=== PATIENT | male | born 1940 | race Caucasian/White ===

== ENCOUNTER → 2019-01-19 | Outpatient (CLI) | payer MEDICARE, OTHER ==
[~2019-01-19] MED LIST: HYDR-3583 PO
--- NOTE | 2019-01-19 15:57 | Diagnostic Imaging Report ---
PATIENT HISTORY: Herniated disc. TECHNIQUE: Three views of the cervical spine. COMPARISON: None. FINDINGS: The cervical spine is visible from the craniocervical junction down to the C7 level on the lateral view. There are moderate degenerative changes at C4-5, C5-6, and C6-7, with mild degenerative change at C3-4. No significant spondylolisthesis is seen. No acute fracture is seen. There is facet arthropathy at C2-3. The C1-2 alignment appears normal. Prevertebral soft tissues are unremarkable. IMPRESSION: Moderate degenerative changes in the cervical spine with no acute fracture seen. Dictated by: Dictated on workstation # [id number]
--- NOTE | 2019-01-19 17:41 | Diagnostic Imaging Report ---
PATIENT HISTORY: Herniated disc. TECHNIQUE: Three views of the lumbar spine. COMPARISON: None. FINDINGS: There are five lumbar-type vertebral bodies. There is minimal retrolisthesis at L1-2 and at L3-4. There is grade 1 anterolisthesis at L4-5 measuring 4 mm. There is mild disc height loss at multiple levels throughout the lumbar spine, particularly at L5-S1. Small endplate osteophytes are noted at L3 and L4. Vertebral body heights are preserved. No acute fracture is seen. The bilateral sacroiliac joints are patent. Cholecystectomy clips are noted. There is aortic atherosclerosis. IMPRESSION: Mild degenerative changes in the lumbar spine with no acute osseous abnormalities seen. Dictated by: Dictated on workstation # [id number]
== END ==
LOC: RAD 14:24
PROVIDERS: ATTEND Nurse Practitioner Family
DX: M47.812 Spondylosis without myelopathy or radiculopathy, cervical region (principal); M50.20 Other cervical disc displacement, unspecified cervical region; M51.26 Other intervertebral disc displacement, lumbar region; M47.816 Spondylosis without myelopathy or radiculopathy, lumbar region; Z90.49 Acquired absence of other specified parts of digestive tract
CPT/HCPCS: 72040; 72100

== ENCOUNTER → 2019-05-05 | Outpatient (CLI) | payer MEDICARE, OTHER ==
--- NOTE | 2019-05-05 18:52 | Diagnostic Imaging Report ---
EXAMINATION: PA And lateral chest at 2:45 p.m. INDICATION: Chest pain. COMPARISON: There are no prior studies available for comparison. FINDINGS: The heart size is within normal limits. The lungs are clear. There is no evidence for failure, pneumonia, or for a pleural effusion. The mediastinum is not widened. The osseous structures are intact. IMPRESSION: There is no evidence for an acute cardiopulmonary abnormality. Dictated by: Dictated on workstation # [id number]
== END ==
LOC: RAD 14:32
PROVIDERS: ATTEND Family Medicine
DX: R07.89 Other chest pain (principal); R05 Cough; Z87.891 Personal history of nicotine dependence
CPT/HCPCS: 71046

== ENCOUNTER → 2020-02-06 | Outpatient (CLI) | payer MEDICARE, OTHER ==
--- NOTE | 2020-02-06 10:53 | Diagnostic Imaging Report ---
EXAMINATION: Supine abdomen at 9:26 AM INDICATION: Nephrolithiasis Reportedly, there is clinical concern regarding nephrolithiasis. There is a 5 mm calcific-like density overlying the superior pole of the left kidney. In retrospect, this may have been present on the lumbar spine exam performed on 01/09/2019. If further evaluation is desired, then CT would be recommended. There is no other pathological calcification evident. There is some gas in both the large and small bowel in a nonspecific fashion. There is no sign of bowel obstruction. There is no mass or organomegaly appreciated. The osseous structures are intact. Surgical clips are again seen overlying the right upper quadrant. IMPRESSION: 1. There is a question of nephrolithiasis on the left. Additional considerations as above. 2. There is no other pathological calcification identified. Dictated by: Dictated on workstation # [id number]
== END ==
LOC: RAD 09:02
PROVIDERS: ATTEND Urology
DX: N20.0 Calculus of kidney (principal)
CPT/HCPCS: 74018

== ENCOUNTER → 2020-02-27 | Outpatient (CLI) | payer MEDICARE, OTHER ==
--- NOTE | 2020-02-27 11:44 | Diagnostic Imaging Report ---
Indication: Right-sided kidney stone. Time of exam: 11:08 AM Correlation is made with prior abdominal radiograph from 02/06/2020. Bowel gas pattern is unremarkable. There are surgical clips in the gallbladder fossa. There is questionable vague calcific density overlying the upper pole of the left kidney similar to prior. No definite opaque calculi are seen along the expected courses of the ureters. IMPRESSION: Questionable left-sided renal calculi. If further evaluation is warranted, CT of the urinary tracts could be performed for further evaluation. Dictated by: Dictated on workstation # [id number]
== END ==
LOC: RAD 10:50
PROVIDERS: ATTEND Nurse Practitioner Family
DX: N20.0 Calculus of kidney (principal)
CPT/HCPCS: 74018

== ENCOUNTER 2020-03-19 08:57 | Inpatient (IN) | payer MEDICARE, OTHER ==
[~2020-03-19] VITALS: Ht 157 cm; Wt 91.6 kg
[2020-03-19] MEDS ORDERED: NS IV 1000 ML 1,000 ML IV SCH ×2 (09:12)
[2020-03-19] MEDS ORDERED: AZITHROMYCIN INJECTION 500 MG in NS (IVPB) 250 ML IV ONE (09:15)
[2020-03-19] MEDS ORDERED: cefTRIAXone FOR IV USE 1,000 MG in WATER (STERILE) FOR INJECTION 10 ML IV ONE (09:15)
--- OUTSIDE RECORDS SUMMARY | 2020-03-19 09:20 | XMS REPORT | CCD ---
Author Author Drake Larson Organization Marcy Maldonado MD, [facility] Address [address] [place] [address] Phone Care Team Providers Care First Sampler Name Role Phone PP Unavailable CCM Unavailable Summary Purpose Interface Exchange Insurance Providers Payer name Policy type / Coverage type Covered constitution party ID Effective Begin Date Effective End Date WPS Medicare Part B Medicare Part B [id number] Unknown [employer] dicYnsect Part B [id number] Unkn own Family History Family History data not found Social History Social History Element Codes Description Effective Dates Marital status Unknown [place] 01/19/2019 Number of children Unknown 2 01/19/2019 Employment Unknown Retir ed 01/19/[address]: 7722080 Quit over 10 years ago 01/19/[address]: 072706051 Never drinks alcohol 01/19/2019 Allergies, Adverse Reactions, Alerts Substance Reaction Codes Entered Date Inactivated Date Status * NO KNOWN DRUG NICK RGIES Unknown 05/05/2019 No Inactive Date Active Past Medical History Illness Codes Condition Status Onset Date Resolved Date Acute bronchitis due to other specified organisms ICD-9: 466.0 ICD-10: J20.8 Active 05/05/2019 Unknown Chest pain on breathing ICD-9: 786.52 ICD-10: R07.1 Active 05/05/2019 Unknown Cough ICD-9: 786.2 ICD-10: R05 Active 05/05/2019 Unknown Rash and other nonsp ecific skin eruption ICD-9: 782.1 ICD-10: R21 Active 05/05/2019 Unknown Encounter for genera l adult medical examination with abnormal findings ICD-9: V70.0 ICD-10: Z00.01 Active 01/19/2019 Unknown Encounter for screen ing for cardiovascular disorders ICD-9: V81.2 ICD-10: Z13.6 Active 01/19/2019 Unknown Encounter for screen ing for malignant neoplasm of prostate ICD-9: V76.44 ICD-10: Z12.5 Active 01/19/2019 Unknown Low back pain ICD-9: 724.2 ICD-10: M54.5 Active 01/19/2019 Unknown Pain in right shoulder ICD-9: 719.41 ICD-10: M25.511 Active 01/19/2019 Unknown Problems Condition Codes Effectiv e Dates Condition Status Acute bronchitis due to other specified organisms ICD-9: 466.0 ICD-10: J20.8 05/05/2019 Active Chest pain on breathing ICD-9: 786.52 ICD-10: R07.1 05/05/2019 Active Cough ICD-9: 786.2 ICD-10: R05 05/05/2019 Active Rash and other nonsp ecific skin eruption ICD-9: 782.1 ICD-10: R21 05/05/2019 Active Encounter for genera l adult medical examination with abnormal findings ICD-9: V70.0 ICD-10: Z00.01 01/19/2019 Active Encounter for screen ing for cardiovascular disorders ICD-9: V81.2 ICD-10: Z13.6 01/19/2019 Active Encounter for screen ing for malignant neoplasm of prostate ICD-9: V76.44 ICD-10: Z12.5 01/19/2019 Active Low back pain ICD-9: 724.2 ICD-10: M54.5 01/19/2019 Active Pain in right shoulder ICD-9: 719.41 ICD-10: M25.511 01/19/2019 Active Medications Medication Codes Instruc tions Start Date Stop Date Sta s Fill Instructions acyclovir 800 mg tablet RxNorm: 950916 1 Tablet(s) PO TID 05/17/2019 05/23/2019 Active acyclovir 800 mg tablet RxNorm: 631635 1 Tablet(s) PO TID 05/17/2019 05/16/2019 Inactive betamethasone loretta te 0.1 % topical cream RxNorm: 688905 1 TOP BID 05/05/2019 05/14/2019 Inactive ketoconazole 2 % top ical cream RxNorm: 290044 1 TOP TID 05/05/2019 05/14/2019 Inactive Medication Administered No Medication Administered data Immunizations No Immunization data Assessments Condition Codes Effectiv e Dates Acute bronchitis due to other specified organisms ICD-10: J20.8 ICD-9: 466.0 05/05/2019 Cough ICD-10: R05 ICD-9: 786.2 05/05/2019 Rash and other nonspecific skin eruption ICD-10: R21 ICD-9: 782.1 05/05/2019 Chest pain on breathing ICD-10: R07. 1 ICD-9: 786.52 05/05/2019 Encounter for screening for malignant neoplasm of pros earl ICD-10: Z12.5 ICD-9: V76.44 01/19/2019 Encounter for screening for cardiovascular disorders ICD-10: Z13.6 ICD-9: V81.2 01/19/2019 Encounter for general adult medical exam ination with abnormal findings ICD-10: Z00.01 ICD-9: V70.0 01/19/2019 Pain in right shoulder ICD-10: M25.5 11 ICD-9: 719.41 01/19/2019 Reason For Visit Reason For Visit Effective Dates Notes cough 05/05/2019 shoulder pain 01/19/2019 Results Observation Observation Code Item Item Code Result Date Total Psa Ord10 PSA 2.49 ng/mL 01/20/2019 Lipid Ord30 CHOL 179 mg/dL 01/20/2019 Lipid Ord30 HDL 28.0 mg/dl 01/20/2019 Lipid Ord30 TRIG 152 mg/dL 01/20/2019 Lipid Ord30 LDL 121 mg/dL 01/20/2019 Lipid Ord30 C/HDL 6.4 Ratio 01/20/2019 Tsh Ord6 TSH (3rd IS) 2.64 uIU/mL 01/20/2019 Comp Metabolic Euh716 NA 140 mEq/L 01/20/2019 Comp Metabolic Ewl439 K 3.9 mEq/L 01/20/2019 Comp Metabolic Htc862 CL 104 mEq/L 01/20/2019 Comp Metabolic Qvh191 CO2 26.0 mEq/L 01/20/2019 Comp Metabolic Xfv299 AN ION GAP 14 01/20/2019 Comp Metabolic Vrc135 GL UCOSE 99 mg/dL 01/20/2019 Comp Metabolic Slo136 Cr eat 0.8 mg/dL 01/20/2019 Comp Metabolic Pax035 eG FR 104 ml/min/1.73m2 01/05 Comp Metabolic Zjt606 BUN 11 mg/dL 01/20/2019 Comp Metabolic Hej928 B/ C Ratio 14.3 Ratio 01/20/2019 Comp Metabolic Koc491 CA LCIUM 8.9 mg/dL 01/20/2019 Comp Metabolic Tby268 AL K PHOS 63 U/L 01/20/2019 Comp Metabolic Ltd900 T(SGOT) 16 U/L 01/20/2019 Comp Metabolic Pts001 AL T(SGPT) 23 U/L 01/20/2019 Comp Metabolic Vjq276 BI LI T 1.0 mg/dL 01/20/2019 Comp Metabolic Nqf799 AL BUMIN 4.2 g/dL 01/20/2019 Comp Metabolic Psf416 TP RO 6.3 g/dL 01/20/2019 Comp Metabolic Eyj522 GL OB 2.1 g/dL 01/20/2019 Comp Metabolic Rlw726 A/ G Ratio 2.0 Ratio 01/20/2019 Comp Metabolic Vzq084 Os mo 279 mOsmo 01/20/2019 Cbc With Differential Ord2 WBC 4.83 K/ul 01/19/2019 Cbc With Differential Ord2 RBC 5.22 M/ul 01/19/2019 Cbc With Differential Ord2 HGB 15.5 g/dl 01/19/2019 Cbc With Differential Ord2 HCT 46.4 % 01/19/2019 Cbc With Differential Ord2 Neut% 72.1 % 01/19/2019 Cbc With Differential Ord2 MCV 88.9 fl 01/19/2019 Cbc With Differential Ord2 Lymph% 15.9 % 01/19/2019 Cbc With Differential Ord2 MCH 29.7 pg 01/19/2019 Cbc With Differential Ord2 [place]% 7.9 % 01/19/2019 Cbc With Differential Ord2 Eos% 3.9 % 01/19/2019 Cbc With Differential Ord2 MCHC 33.4 pg 01/19/2019 Cbc With Differential Ord2 PLT 174 K/ul 01/19/2019 Cbc With Differential Ord2 Baso% 0.2 % 01/19/2019 Cbc With Differential Ord2 RDW 14.5 % 01/19/2019 Cbc With Differential Ord2 Neut ABS# 3.48 K/ul 01/19/2019 Cbc With Differential Ord2 Lymph ABS# 0.77 K/ul 01/19/2019 Cbc With Differential Ord2 [place] ABS# 0.4 K/ul 01/19/2019 Cbc With Differential Ord2 Eos ABS# 0.2 K/ul 01/19/2019 Cbc With Differential Ord2 Baso ABS# 0.0 K/ul 01/19/2019 Review of Systems System Result Effective Dates Constitutional No recent illness 05/05/2019 Constitutional No chills 05/05/2019 Constitutional No diaphoresis 05/05/2019 Constitutional No fever 05/05/2019 Eyes No blindness 2018 Ears/Nose/Throat/Neck No nasal allergies 05/05/2019 Ears/Nose/Throat/Neck No nasal discharge 05/05/2019 Cardiovascular No chest pain/pressure 05/05/2019 Cardiovascular No dyspnea 05/05/2019 Respiratory chest congestion 05/05/2019 Respiratory cough 2018 Gastrointestinal No abdominal pain 05/05/2019 Gastrointestinal No constipation 05/05/2019 Gastrointestinal No diarrhea 05/05/2019 Gastrointestinal No hematochezia 05/05/2019 Gastrointestinal No melena 05/05/2019 Gastrointestinal No nausea 05/05/2019 Gastrointestinal No vomiting 05/05/2019 Dermatologic rash 2018 Neurologic No alteration of consciousness 05/05/2019 Neurologic No mental status change 05/05/2019 Musculoskeletal stiffness 05/05/2019 Musculoskeletal back pain 05/05/2019 Constitutional No recent illness 01/19/2019 Constitutional No chills 01/19/2019 Constitutional No diaphoresis 01/19/2019 Constitutional No fever 01/19/2019 Eyes No eye erythema Ears/Nose/Throat/Neck No nasal allergies 01/19/2019 Ears/Nose/Throat/Neck No nasal discharge 01/19/2019 Cardiovascular No chest pain/pressure 01/19/2019 Cardiovascular No dyspnea 01/19/2019 Respiratory No chest congestion 01/19/2019 Respiratory No cough Gastrointestinal No abdominal pain 01/19/2019 Gastrointestinal No constipation 01/19/2019 Gastrointestinal No diarrhea 01/19/2019 Gastrointestinal No hematochezia 01/19/2019 Gastrointestinal No melena 01/19/2019 Gastrointestinal No nausea 01/19/2019 Gastrointestinal No vomiting 01/19/2019 Dermatologic No rash Neurologic No alteration of consciousness 01/19/2019 Neurologic No mental status change 01/19/2019 Musculoskeletal shoulder pain 01/19/2019 Musculoskeletal carpal tunnel syndrome 01/19/2019 Physical Exam Exam Name System Name It em Name Status Result Effective Dates Notes Full Exam - General 1994 Constitutional general appearance Overall: well developed 05/05/2019 None Full Exam - General 1994 Constitutional general appearance Overall: in no acute distress 05/05/2019 None Full Exam - General 1994 Constitutional general appearance Overall: well nourished 05/05/2019 None Full Exam - General 1994 Eyes conjunctiva/eyelids Overall: conjunctiva clear 05/05/2019 None Full Exam - General 1994 Eyes conjunctiva/eyelids Overall: cornea clear 05/05/2019 None Full Exam - General 1994 Eyes conjunctiva/eyelids Overall: eyelids normal 05/05/2019 None Full Exam - General 1994 Eyes pupils and irises Overall: pupils equal, round, reactive to light and accomodation 05/05/2019 None Full Exam - General 1994 Ears/Nose/Throat otoscopic exam Overall: external auditory canals clear 05/05/2019 None Full Exam - General 1994 Ears/Nose/Throat otoscopic exam Overall: tympanic membranes clear 05/05/2019 None Full Exam - General 1994 Ears/Nose/Throat lips/teeth/gingiva Overall: benign lips 05/05/2019 None Full Exam - General 1994 Ears/Nose/Throat oral cavity/pharynx/larynx Overall: oral mucosa clear 05/05/2019 None Full Exam - General 1994 Ears/Nose/Throat oral cavity/pharynx/larynx Overall: oropharyngeal mucosa clear 05/05/2019 None Full Exam - General 1994 Respiratory auscultation Overall: breath sounds clear bilaterally 05/05/2019 None Full Exam - General 1994 Respiratory respiratory effort/rhythm Overall: no retractions 05/05/2019 None Full Exam - General 1994 Respiratory respiratory effort/rhythm Overall: normal rate 05/05/2019 None Full Exam - General 1994 Cardiovascular extremities Overall: no clubbing 05/05/2019 None Full Exam - General 1994 Cardiovascular auscultation of heart Overall: regular rate 05/05/2019 None Full Exam - General 1994 Cardiovascular auscultation of heart Overall: normal heart sounds 05/05/2019 None Full Exam - General 1994 Abdomen abdominal exam Overall: no tenderness 05/05/2019 None Full Exam - General 1994 Abdomen abdominal exam Overall: normal bowel sounds 05/05/2019 None Full Exam - General 1994 Musculoskeletal upper extremity Palpation - shoulder: acromioclavicular joint tenderness 05/05/2019 None Full Exam - General 1994 Musculoskeletal upper extremity Palpation - shoulder: tenderness @ bicipital groove 05/05/2019 None Full Exam - General 1994 Musculoskeletal upper extremity ROM - shoulder: pain with external rotation 05/05/2019 None Full Exam - General 1994 Musculoskeletal upper extremity ROM - shoulder: pain with internal rotation 05/05/2019 None Full Exam - General 1994 Musculoskeletal gait and station Overall: normal gait 05/05/2019 None Full Exam - General 1994 Musculoskeletal gait and station Overall: normal station 05/05/2019 None Full Exam - General 1994 Musculoskeletal head and neck Overall: head atraumatic 05/05/2019 None Full Exam - General 1994 Neurologic cranial nerves Overall: crainial nerves 2 - 12 grossly intact 05/05/2019 None Full Exam - General 1994 Psychiatric orientation/consciousness Overall: oriented to person, place and time 05/05/2019 None Full Exam - General 1994 Psychiatric mood and affect Overall: normal mood and affect 05/05/2019 None Full Exam - General 1994 Psychiatric appearance Overall: well-groomed, good eye contact 05/05/2019 None Full Exam - General 1994 Integument inspection of skin Dermatitis: dryness/flaking 05/05/2019 on left arm from shoulder to hand Full Exam - General 1994 Constitutional general appearance Overall: well developed 01/19/2019 None Full Exam - General 1994 Constitutional general appearance Overall: in no acute distress 01/19/2019 None Full Exam - General 1994 Constitutional general appearance Overall: well nourished 01/19/2019 None Full Exam - General 1994 Eyes conjunctiva/eyelids Overall: conjunctiva clear 01/19/2019 None Full Exam - General 1994 Eyes conjunctiva/eyelids Overall: cornea clear 01/19/2019 None Full Exam - General 1994 Eyes conjunctiva/eyelids Overall: eyelids normal 01/19/2019 None Full Exam - General 1994 Eyes pupils and irises Overall: pupils equal, round, reactive to light and accomodation 01/19/2019 None Full Exam - General 1994 Ears/Nose/Throat otoscopic exam Overall: external auditory canals clear 01/19/2019 None Full Exam - General 1994 Ears/Nose/Throat otoscopic exam Overall: tympanic membranes clear 01/19/2019 None Full Exam - General 1994 Ears/Nose/Throat lips/teeth/gingiva Overall: benign lips 01/19/2019 None Full Exam - General 1994 Ears/Nose/Throat oral cavity/pharynx/larynx Overall: oral mucosa clear 01/19/2019 None Full Exam - General 1994 Ears/Nose/Throat oral cavity/pharynx/larynx Overall: oropharyngeal mucosa clear 01/19/2019 None Full Exam - General 1994 Respiratory auscultation Overall: breath sounds clear bilaterally 01/19/2019 None Full Exam - General 1994 Respiratory respiratory effort/rhythm Overall: no retractions 01/19/2019 None Full Exam - General 1994 Respiratory respiratory effort/rhythm Overall: normal rate 01/19/2019 None Full Exam - General 1994 Cardiovascular extremities Overall: no clubbing 01/19/2019 None Full Exam - General 1994 Cardiovascular auscultation of heart Overall: regular rate 01/19/2019 None Full Exam - General 1994 Cardiovascular auscultation of heart Overall: normal heart sounds 01/19/2019 None Full Exam - General 1994 Abdomen abdominal exam Overall: no tenderness 01/19/2019 None Full Exam - General 1994 Abdomen abdominal exam Overall: normal bowel sounds 01/19/2019 None Full Exam - General 1994 Musculoskeletal gait and station Overall: normal gait 01/19/2019 None Full Exam - General 1994 Musculoskeletal gait and station Overall: normal station 01/19/2019 None Full Exam - General 1994 Musculoskeletal head and neck Overall: head atraumatic 01/19/2019 None Full Exam - General 1994 Neurologic cranial nerves Overall: crainial nerves 2 - 12 grossly intact 01/19/2019 None Full Exam - General 1994 Psychiatric orientation/consciousness Overall: oriented to person, place and time 01/19/2019 None Full Exam - General 1994 Psychiatric mood and affect Overall: normal mood and affect 01/19/2019 None Full Exam - General 1994 Psychiatric appearance Overall: well-groomed, good eye contact 01/19/2019 None Full Exam - General 1994 Musculoskeletal upper extremity Palpation - shoulder: acromioclavicular joint tenderness 01/19/2019 None Full Exam - General 1994 Musculoskeletal upper extremity Palpation - shoulder: tenderness @ bicipital groove 01/19/2019 None Full Exam - General 1994 Musculoskeletal upper extremity ROM - shoulder: pain with external rotation 01/19/2019 None Full Exam - General 1994 Musculoskeletal upper extremity ROM - shoulder: pain with internal rotation 01/19/2019 None Procedures No Procedures data Vital Signs Date Vital 05/05/2019 Blood Pressure 1: 130/70 Code: 8480-6 BMI: 28.7 Code: 93605-9 Heart Rate 1: 70 bpm Height: 5'10" SpO2: 93% Weight: 197 lbs 01/19/2019 Blood Pressure 1: 122/66 Code: 8480-6 BMI: 28.5 Code: 50117-9 Heart Rate 1: 62 bpm Height: 5'10" SpO2: 95% Weight: 196 lbs Functional Status No Functional Status data History of Present Illness Symptom Name Status Resu lt Effective Date Notes Location in the throat 05/05/2019 None Quality worsening 05/05/2019 None Onset and Resolution o ngoing 05/05/2019 None Quality productive 05/05/2019 yellow Onset of Symptom 2 mon ths ago 05/05/2019 None Pertinent Findings gisele st discomfort 05/05/2019 right side rib pain aroun d to back Pertinent Findings dys pnea 05/05/2019 after coughing Pertinent Findings mus lou aches 05/05/2019 None Quality chronic 01/19/2019 None Location on the right shoulder 01/19/2019 None Onset and Resolution o ngoing 01/19/2019 None Pertinent Findings Den ies fever 01/19/2019 None Advance Directives No Advance Directive data Encounters Encounter Performer Loca tion Codes Date EST. P ATIENT, LEVEL IV Diagnosis: Chest pain on breathing[ICD10: R07.1] Diagnosis: Cough[ICD10: R05] Diagnosis: Rash and other nonspecific skin eruption[ICD10: R21] Diagnosis: Acute bronchitis due to other specified organisms[ICD10: J20.8] [facility] CPT-4: 21415 05/05/2019 OFFICE VISIT, NEW - LEVEL 4 Diagnosis: Pain in right shoulder[ICD10: M25.511] Diagnosis: Encounter for screening for cardiovascular disorders[ICD10: Z13.6] Diagnosis: Encounter for screening for malignant neoplasm of prostate[ICD10: Z12.5] Diagnosis: Encounter for general adult medical examination with abnormal findings[ICD10: Z00.01] [facility] CPT-4: 29820 01/19/2019 Plan of Care Planned Activity Notes C odes Status Date Visit Plan: Bronchitis with cough - acute case of bronchitis identified. Pt has been given antibiotics, breathing treatments as appropriate, and pt has been instructed to call if symptoms are not improved, or if symptoms acutely worsen. Rash - rx for betamethasone/ketoconazole cream for treatment of arm. 05/05/2019 Appointment: Marcy Maldonado WPtel: [id number] (15 min) Moderate 05/05/2019 Patient Education: Patient Medication Summary Completed 05/05/2019 Care Plan: CHEST X-RAY 2VW FRONTAL&LATL LOINC : 67481-6 Pending 05/05/2019 Care Plan: X-RAY EXAM NECK SPINE 2-3 VW LOINC : 12173-8 Pending 01/20/2019 Care Plan: X-RAY EXAM L-S SPINE 2/3 VWS LOINC : 42910-2 Pending 01/20/2019 Visit Plan: Well Adult - pt was cou nseled about diet, exercise, and encouraged to follow a heart healthy diet and increase activity level. The patient was instructed to RTC yearly for well adult exams and PRN for acute illnesses. The pt was also instructed to have yearly labs for check of cholesterol, thyroid, chem panel, CBC, and renal functioning. Right shoulder/back pain - will check x-ray and treat or refer as indicated 01/19/2019 Patient Education: Patient Medication Summary Completed 01/19/2019 Care Plan: Total Psa Pending 01/19/2019 Instructions Comment . Bronchitis with co ugh - acute case of bronchitis identified. Pt has been given antibiotics, breathing treatments as appropriate, and pt has been instructed to call if symptoms are not improved, or if symptoms acutely worsen. Rash - rx for betamethasone/ketoconazole cream for treatment of arm. . Well Adult - pt wa s counseled about diet, exercise, and encouraged to follow a heart healthy diet and increase activity level. The patient was instructed to RTC yearly for well adult exams and PRN for acute illnesses. The pt was also instructed to have yearly labs for check of cholesterol, thyroid, chem panel, CBC, and renal functioning. Right shoulder/back pain - will check x-ray and treat or refer as indicated
--- OUTSIDE RECORDS SUMMARY | 2020-03-19 09:21 | XMS REPORT | CCD ---
Author Drake Peraza Organization Marcy Maldonado MD, [facility] Address [address] [place] [address] Phone Care Team Providers Care Control Clerk Name Role Phone PP Unavailable CCM Unavailable Summary Purpose Interface Exchange Insurance Providers Payer name Policy type / Coverage type Covered green party ID Effective Begin Date Effective End Date WPS Medicare Part B Medicare Part B [id number] Unknown Unknown Cigna health and Life Insurance Medi care Part B [id number] Unknown Unkno wn Family History Family History data not found Social History Social History Element Codes Description Effective Dates Marital status Unknown M arried [place] 01/19/2019 Number of children Unknown 2 01/19/2019 Employment Unknown Retir ed 01/19/[address]: 4466738 Quit over 10 years ago 01/19/[address]: 598359148 Never drinks alcohol 01/19/2019 Allergies, Adverse Reactions, Alerts Allergies, Adverse Reactions, Alerts data not found Past Medical History Illness Codes Condition Status Onset Date Resolved Date Encounter for genera l adult medical examination [...] Condition Codes Effectiv e Dates Condition Status Encounter for genera l adult medical examination [...] ICD-9: 719.41 ICD-10: M25.511 01/19/2019 Active Medications No Medication History data Medication Administered No Medication Administered data Immunizations No Immunization data Assessments Condition Codes Effectiv e Dates Encounter for screening for malignant neoplasm of pros earl ICD-10: Z12.5 ICD-9: V76.44 01/19/2019 Encounter for screening for cardiovascular disorders ICD-10: Z13.6 ICD-9: V81.2 01/19/2019 Encounter for general adult medical exam ination with abnormal findings ICD-10: Z00.01 ICD-9: V70.0 01/19/2019 Pain in right shoulder ICD-10: M25.5 11 ICD-9: 719.41 01/19/2019 Reason For Visit Reason For Visit Effective Dates Notes shoulder pain 01/19/2019 Results Observation Observation Code Item Item Code Result Date Total Psa Ord10 PSA 2.49 ng/mL 01/20/2019 Lipid Ord30 CHOL 179 mg/dL 01/20/2019 Lipid Ord30 HDL 28.0 mg/dl 01/20/2019 Lipid Ord30 TRIG 152 mg/dL 01/20/2019 Lipid Ord30 LDL 121 mg/dL 01/20/2019 Lipid Ord30 C/HDL 6.4 Ratio 01/20/2019 Tsh Ord6 TSH (3rd IS) 2.64 uIU/mL 01/20/2019 Comp Metabolic Plv939 NA 140 mEq/L 01/20/2019 Comp Metabolic Gxy202 K 3.9 mEq/L 01/20/2019 Comp Metabolic Zox499 CL 104 mEq/L 01/20/2019 Comp Metabolic Qgf838 CO2 26.0 mEq/L 01/20/2019 Comp Metabolic Mwj401 AN ION GAP 14 01/20/2019 Comp Metabolic Llr439 GL UCOSE 99 mg/dL 01/20/2019 Comp Metabolic Mtq362 Cr eat 0.8 mg/dL 01/20/2019 Comp Metabolic Dvc830 eG FR 104 ml/min/1.73m2 01/05 Comp Metabolic Fke459 BUN 11 mg/dL 01/20/2019 Comp Metabolic Bih150 B/ C Ratio 14.3 Ratio 01/20/2019 Comp Metabolic Rzz851 CA LCIUM 8.9 mg/dL 01/20/2019 Comp Metabolic Qda666 AL K PHOS 63 U/L 01/20/2019 Comp Metabolic Nie014 T(SGOT) 16 U/L 01/20/2019 Comp Metabolic Acb390 AL T(SGPT) 23 U/L 01/20/2019 Comp Metabolic Ubj149 BI LI T 1.0 mg/dL 01/20/2019 Comp Metabolic Gud034 AL BUMIN 4.2 g/dL 01/20/2019 Comp Metabolic Qdo274 TP RO 6.3 g/dL 01/20/2019 Comp Metabolic Ogm771 GL OB 2.1 g/dL 01/20/2019 Comp Metabolic Lsr771 A/ G Ratio 2.0 Ratio 01/20/2019 Comp Metabolic Qct838 Os mo 279 mOsmo 01/20/2019 Cbc With [...] 29.7 pg 01/19/2019 Cbc With Differential Ord2 [place]% 7.9 % 01/19/2019 Cbc With Differential Ord2 MCHC 33.4 pg 01/19/2019 Cbc With Differential Ord2 Eos% 3.9 % 01/19/2019 Cbc With Differential Ord2 PLT 174 K/ul 01/19/2019 Cbc With Differential Ord2 Baso% 0.2 % 01/19/2019 Cbc With Differential Ord2 RDW 14.5 % 01/19/2019 Cbc With Differential Ord2 Neut ABS# 3.48 K/ul 01/19/2019 Cbc With Differential Ord2 Lymph ABS# 0.77 K/ul 01/19/2019 Cbc With Differential Ord2 [place] ABS# 0.4 K/ul 01/19/2019 Cbc With Differential Ord2 Eos ABS# 0.2 K/ul 01/19/2019 Cbc With Differential Ord2 Baso ABS# 0.0 K/ul 01/19/2019 Review of Systems System Result Effective Dates Constitutional No recent illness 01/19/2019 Constitutional No [...] No Procedures data Vital Signs Date Vital 01/19/2019 Blood Pressure 1: 122/66 Code: 8480-6 BMI: 28.5 Code: 79391-1 Heart Rate 1: 62 bpm Height: 5'10" SpO2: 95% Weight: 196 lbs Functional Status No Functional Status data History of Present Illness Symptom Name Status Resu lt Effective Date Notes Quality chronic 01/19/2019 None Location on the right shoulder 01/19/2019 None Onset and Resolution o ngoing 01/19/2019 None Pertinent Findings Den ies fever 01/19/2019 None Advance Directives No Advance Directive data Encounters Encounter Performer Loca tion Codes Date OFFICE VISIT, NEW - LEVEL 4 Diagnosis: Pain in right shoulder[ICD10: M25.511] Diagnosis: Encounter for screening for cardiovascular disorders[ICD10: Z13.6] Diagnosis: Encounter for screening for malignant neoplasm of prostate[ICD10: Z12.5] Diagnosis: Encounter for general adult medical examination with abnormal findings[ICD10: Z00.01] [facility] CPT-4: 40614 01/19/2019 Plan of Care Planned Activity Notes C odes Status Date Care Plan: X-RAY EXAM NECK SPINE 2-3 VW LOINC : 63513-0 Pending 01/20/2019 Care Plan: X-RAY EXAM L-S SPINE 2/3 VWS LOINC : 86723-1 Pending 01/20/2019 Visit Plan: Well Adult - [...] Total Psa Pending 01/19/2019 Instructions Comment . Well Adult - pt wa s [...]
--- OUTSIDE RECORDS SUMMARY | 2020-03-19 09:21 | XMS REPORT | CCD ---
Author Author Drake Larson Organization Marcy Maldonado MD, [facility] Address [address] [place] [address] Phone Care Team Providers Care Preparation Operator Name Role Phone PP Unavailable CCM Unavailable Summary Purpose Interface Exchange Insurance Providers Payer name Policy type / Coverage type Covered constitution party ID Effective Begin Date Effective End Date WPS Medicare Part B Medicare Part B [id number] Unknown [address] [employer]ine[employer] Part B [id number] Unkn own Family History Family History data not found Social History Social History Element Codes Description Effective Dates Marital status Unknown M arried [place] 01/19/2019 Number of children Unknown 2 01/19/2019 Employment Unknown Retir ed 01/19/[address]: 7254039 Quit over 10 years ago 01/19/[address]: 669449989 Never drinks alcohol 01/19/2019 Allergies, Adverse Reactions, [...] Instruc tions Start Date Stop Date Sta tus Fill Instructions betamethasone loretta te 0.1 % topical cream RxNorm: 868542 1 TOP BID 05/05/2019 05/14/2019 Active ketoconazole 2 % top ical cream RxNorm: 912498 1 TOP TID 05/05/2019 05/14/2019 Active Medication Administered No Medication Administered data Immunizations [...] (3rd IS) 2.64 uIU/mL 01/20/2019 Comp Metabolic Ptf321 NA 140 mEq/L 01/20/2019 Comp Metabolic Glb990 K 3.9 mEq/L 01/20/2019 Comp Metabolic Nif537 CL 104 mEq/L 01/20/2019 Comp Metabolic Lqy162 CO2 26.0 mEq/L 01/20/2019 Comp Metabolic Tnp255 AN ION GAP 14 01/20/2019 Comp Metabolic Rys651 GL UCOSE 99 mg/dL 01/20/2019 Comp Metabolic Lqh578 Cr eat 0.8 mg/dL 01/20/2019 Comp Metabolic Wqe489 eG FR 104 ml/min/1.73m2 01/05 Comp Metabolic Nld136 BUN 11 mg/dL 01/20/2019 Comp Metabolic Tyw366 B/ C Ratio 14.3 Ratio 01/20/2019 Comp Metabolic Zty619 CA LCIUM 8.9 mg/dL 01/20/2019 Comp Metabolic Zjn511 AL K PHOS 63 U/L 01/20/2019 Comp Metabolic Nqo671 T(SGOT) 16 U/L 01/20/2019 Comp Metabolic Rze835 AL T(SGPT) 23 U/L 01/20/2019 Comp Metabolic Ytq627 BI LI T 1.0 mg/dL 01/20/2019 Comp Metabolic Frw883 AL BUMIN 4.2 g/dL 01/20/2019 Comp Metabolic Yky653 TP RO 6.3 g/dL 01/20/2019 Comp Metabolic Mgu005 GL OB 2.1 g/dL 01/20/2019 Comp Metabolic Wcw323 A/ G Ratio 2.0 Ratio 01/20/2019 Comp Metabolic Mjg518 Os mo 279 mOsmo 01/20/2019 Cbc With [...] 29.7 pg 01/19/2019 Cbc With Differential Ord2 [place]% 7.9 % 01/19/2019 Cbc With Differential Ord2 [...] 0.77 K/ul 01/19/2019 Cbc With Differential Ord2 [place] ABS# 0.4 K/ul 01/19/2019 Cbc With Differential [...] 1: 130/70 Code: 8480-6 BMI: 28.7 Code: 39041-2 Heart Rate 1: 70 bpm Height: 5'10" SpO2: 93% Weight: 197 lbs 01/19/2019 Blood Pressure 1: 122/66 Code: 8480-6 BMI: 28.5 Code: 35153-2 Heart Rate 1: 62 bpm Height: 5'10" [...] organisms[ICD10: J20.8] [facility] CPT-4: 28949 05/05/2019 OFFICE VISIT, NEW - LEVEL 4 Diagnosis: Pain in right shoulder[ICD10: M25.511] Diagnosis: Encounter for screening for cardiovascular disorders[ICD10: Z13.6] Diagnosis: Encounter for screening for malignant neoplasm of prostate[ICD10: Z12.5] Diagnosis: Encounter for general adult medical examination with abnormal findings[ICD10: Z00.01] [facility] CPT-4: 17595 01/19/2019 Plan of Care Planned Activity Notes C odes Status Date Visit Plan: Bronchitis with cough - acute case of bronchitis identified. Pt has been given antibiotics, breathing treatments as appropriate, and pt has been instructed to call if symptoms are not improved, or if symptoms acutely worsen. Rash - rx for betamethasone/ketoconazole cream for treatment of arm. 05/05/2019 Appointment: Marcy Maldonado WPtel: [address] [place], [place] [phone] (15 min) Moderate 05/05/2019 Patient Education: Patient Medication Summary Completed 05/05/2019 Care Plan: CHEST X-RAY 2VW FRONTAL&LATL LOINC : 78070-2 Pending 05/05/2019 Care Plan: X-RAY EXAM NECK SPINE 2-3 VW LOINC : 62149-7 Pending 01/20/2019 Care Plan: X-RAY EXAM L-S SPINE 2/3 VWS LOINC : 78232-7 Pending 01/20/2019 Visit Plan: Well Adult - [...]
--- OUTSIDE RECORDS SUMMARY | 2020-03-19 09:21 | XMS REPORT | Continuity of Care Document ---
Author Organization Unknown Address Unknown Phone Unavailable Allergies Active Description Code Type Severity Reaction Onset Reported/Identified Relationship to Patient Clinical Status Yes No Known Drug Allergies [id number] Drug Allergy Unknown N/A 05/09/2011 Medications There is no data. Problems Date Dx Coded Attending Type Code Diagnosis Diagnosed By 01/20/2019 DOMENICO HURST APRN Ot M47.812 SPONDYLOSIS W/O MYELOPATHY OR RADICULOPA 01/20/2019 DOMENICO HURST APRN Ot M47.816 SPONDYLOSIS W/O MYELOPATHY OR RADICULOPA 01/20/2019 DOMENICO HURST APRN Ot M50.20 OTHER CERVICAL DISC DISPLACEMENT, UNSP C 01/20/2019 DOMENICO HURST APRN Ot M51.26 OTHER INTERVERTEBRAL DISC DISPLACEMENT, 01/20/2019 DOMENICO HURST APRN Ot Z90.49 ACQUIRED ABSENCE OF OTHER SPECIFIED PART 01/25/2019 DOMENICO HURST APRN Ot M47.812 SPONDYLOSIS W/O MYELOPATHY OR RADICULOPA 01/25/2019 DOMENICO HURST APRN Ot M47.816 SPONDYLOSIS W/O MYELOPATHY OR RADICULOPA 01/25/2019 DOMENICO HURST APRN Ot M50.20 OTHER CERVICAL DISC DISPLACEMENT, UNSP C 01/25/2019 DOMENICO HURST APRN Ot M51.26 OTHER INTERVERTEBRAL DISC DISPLACEMENT, 01/25/2019 DOMENICO HURST BACK TENDER PULP DRIER Ot Z90.49 ACQUIRED ABSENCE OF OTHER SPECIFIED PART 02/08/2019 DOMENICO HURST APRN Ot M47.812 SPONDYLOSIS W/O MYELOPATHY OR RADICULOPA 02/08/2019 DOMENICO HURST APRN Ot M47.816 SPONDYLOSIS W/O MYELOPATHY OR RADICULOPA 02/08/2019 DOMENICO HURST APRN Ot M50.20 OTHER CERVICAL DISC DISPLACEMENT, UNSP C 02/08/2019 DOMENICO HURST BACK TENDER PULP DRIER Ot M51.26 OTHER INTERVERTEBRAL DISC DISPLACEMENT, 02/08/2019 DOMENICO HURST APRN Ot Z90.49 ACQUIRED ABSENCE OF OTHER SPECIFIED PART 06/02/2019 CHAD MALDONADO MD Ot R0 5 COUGH 06/02/2019 CHAD MALDONADO MD Ot R07.89 OTHER CHEST PAIN 06/02/2019 CHAD MALDONADO MD Ot Z87.891 PERSONAL HISTORY OF NICOTINE DEPENDENCE 02/02/2020 W 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 Carter, Marshall 02/02/2020 W N20.0 Kidn ey stone on right side Carter, Marshall 02/02/2020 W N40.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 Carter, Marshall 2020 DOMENICO HURST APRN Ot M47.812 SPONDYLOSIS W/O MYELOPATHY OR RADICULOPA 2020 DOMENICO HURST APRN Ot M47.816 SPONDYLOSIS W/O MYELOPATHY OR RADICULOPA 2020 DOMENICO HURST APRN Ot M50.20 OTHER CERVICAL DISC DISPLACEMENT, UNSP C 2020 DOMENICO HURST APRN Ot M51.26 OTHER INTERVERTEBRAL DISC DISPLACEMENT, 2020 DOMENICO HURST APRN Ot Z90.49 ACQUIRED ABSENCE OF OTHER SPECIFIED PART 2020 CHAD MALDONADO MD Ot R0 5 COUGH 2020 CHAD MALDONADO MD Ot R07.89 OTHER CHEST PAIN 2020 CHAD MALDONADO MD Ot Z87.891 PERSONAL HISTORY OF NICOTINE DEPENDENCE 02/27/2020 DOMENICO HURST APRN Ot M47.812 SPONDYLOSIS W/O MYELOPATHY OR RADICULOPA 02/27/2020 DOMENICO HURST APRN Ot M47.816 SPONDYLOSIS W/O MYELOPATHY OR RADICULOPA 02/27/2020 DOMENICO HURST APRN Ot M50.20 OTHER CERVICAL DISC DISPLACEMENT, UNSP C 02/27/2020 DOMENICO HURST APRN Ot M51.26 OTHER INTERVERTEBRAL DISC DISPLACEMENT, 02/27/2020 DOMENICO HURST APRN Ot Z90.49 ACQUIRED ABSENCE OF OTHER SPECIFIED PART 02/27/2020 CHAD MALDONADO MD Ot R0 5 COUGH 02/27/2020 JOEL MD, CHAD A Ot R07.89 OTHER CHEST PAIN 02/27/2020 JOEL DIAZ, CHAD Llanos Ot Z87.891 PERSONAL HISTORY OF NICOTINE DEPENDENCE 02/27/2020 LOI DIAZ, AJITH A Ot N20.0 CALCULUS OF KIDNEY 02/27/2020 W N20.0 Recu rrent kidney stones Aguilar Neha 02/27/2020 W N39.0 UTI (urinary tract infection) Aguilar Neha 02/27/2020 W R31.0 Amalia s hematuria Neha Sheikh 02/29/2020 NEHA SHEIKH SPRAY MIXER Ot N20.0 CALCULUS OF KIDNEY 03/01/2020 W M54.5 Low back pain Joel Marshall 03/01/2020 W N39.45 Uri nary incontinence with continuous leakage Joel Marshall 03/01/2020 W N40.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 Joel Chad 03/02/2020 W N20.0 Recu rrent kidney stones Neha Sheikh 03/02/2020 W N39.0 UTI (urinary tract infection) Geronimo Sheikhhanie 03/02/2020 W R31.0 Amalia s hematuria Neha Sheikh 03/07/2020 W N39.0 UTI (urinary tract infection) Chad Maldonado Procedures There is no data. Results Test Result Range Urine Culture - 01/21/20 17:56 PRELIM CULTURE RESULTS 50,000-100,000 Gram N egative Lactose Supply Requirements Officer KRISTY / ID to Follow MEDIA PLATED Setup at 18:50 on 01/21/2020 CULTURE SOURCE Void Sensi - 01/21/20 17:56 FINAL CULTURE RESULTS Escherichia coli (Isolate 1) Ampicillin/Sulbactam <=8/4 Ampicillin <=8 Amoxicillin/K Clavulanate <=8/4 Ceftriaxone <=8 Ciprofloxacin <=1 Nitrofurantoin <=32 Gentamicin <=4 Levofloxacin <=2 Trimethoprim/ Sulfamethoxazole <=2/38 Tetracycline <=4 Amikacin <=16 Aztreonam <=8 Ceftazidime <=1 Ceftazidime/K Clavulanate <=0.25 Cephalothin 16 Cefotaxime <=2 Cefotaxime/K Clavulanate <=0.5 Cefoxitin <=8 Cefazolin <=8 Cefepime <=8 Cefuroxime <=4 Ertapenem <=1 Imipenem <=4 Meropenem <=4 Piperacillin/Tazobactam <=16 Piperacillin <=16 Tigecycline <=2 Tobramycin <=4 Encounters ACCT No. Visit Date/Time Discharge Status Pt. Type Provider Facility Loc./Unit Complaint [id number] 01/23/2020 13:59:00 01/23/2020 23:59 :00 DIS Outpatient Francis Ambriz [id number] 01/21/2020 17:55:00 01/21/2020 23:59 :00 DIS Outpatient DARYL TAYA [id number] 01/21/2020 17:23:00 01/21/2020 23:59 :00 DIS Outpatient Pb Francis [id number] 02/27/2020 10:50:00 23:59:59 CLS Outpatient NEHA SHEIKH [facility] RAD KIDNEY STONE [id number] 2020 09:02:00 23:59:59 CLS Outpatient AJITH MONSIVAIS MD [facility] RAD RT KIDNEY STONES [id number] 05/05/2019 14:32:00 23:59:59 CLS Outpatient CHAD MALDONADO MD [facility] RAD HEST WALL PAIN,COUGH [id number] 01/19/2019 14:24:00 23:59:59 CLS Outpatient DOMENICO HURST APRN [facility] RAD HERINATED DISK [id number] 01/18/2019 11:31:51 01/18/2019 23:59:5 9 CLS Outpatient
--- OUTSIDE RECORDS SUMMARY | 2020-03-19 09:21 | XMS REPORT | CCD ---
Author Drake Peraza Organization Marcy Maldonado MD, [facility] Address [address] [place] [address] Phone Care Team Providers Care Pairer Inspector Name Role Phone PP Unavailable CCM Unavailable Summary Purpose Interface Exchange Insurance Providers Payer name Policy type / Coverage type Covered republican ID Effective Begin Date Effective End Date WPS Medicare Part B Medicare Part B [id number] Unknown Unknown Cigna health and Life Insurance Medi care Part B [id number] Unknown Unkno wn Family History Family History data not found Social History Social History Element Codes Description Effective Dates Marital status Unknown M arried [place] 01/19/2019 Number of children Unknown 2 01/19/2019 Employment Unknown Retir ed 01/19/[address]: 2187149 Quit over 10 years ago 01/19/[address]: 060178052 Never drinks alcohol 01/19/2019 Allergies, Adverse Reactions, Alerts Allergies, Adverse Reactions, Alerts data not found Past Medical History Illness Codes Condition Status Onset Date Resolved Date Encounter for screen ing for cardiovascular disorders ICD-9: V81.2 ICD-10: Z13.6 Active 01/19/2019 Unknown Encounter for screen ing for malignant neoplasm of prostate ICD-9: V76.44 ICD-10: Z12.5 Active 01/19/2019 Unknown Low back pain ICD-9: 724.2 ICD-10: M54.5 Active 01/19/2019 Unknown Problems Condition Codes Effectiv e Dates Condition Status Encounter for screen ing for cardiovascular disorders ICD-9: V81.2 ICD-10: Z13.6 01/19/2019 Active Encounter for screen ing for malignant neoplasm of prostate ICD-9: V76.44 ICD-10: Z12.5 01/19/2019 Active Low back pain ICD-9: 724.2 ICD-10: M54.5 01/19/2019 Active Medications No Medication History data Medication Administered No Medication Administered data Immunizations No Immunization data Assessments No Assessment data Reason For Visit No Reason For Visit data Results Observation Observation Code Item Item Code Result Date Total Psa Ord10 PSA 2.49 ng/mL 01/20/2019 Review of Systems No Review of Systems data Physical Exam No Physical Exam data Procedures No Procedures data Vital Signs No Vital signs data Functional Status No Functional Status data History of Present Illness No History of Present Illness data Advance Directives No Advance Directive data Encounters No Encounter data Plan of Care No Plan of Care data Instructions No Instructions
--- OUTSIDE RECORDS SUMMARY | 2020-03-19 09:21 | XMS REPORT | CCD ---
Author Drake Peraza Organization Marcy Maldonado MD, [facility] Address [address] [place] [address] Phone Care Team Providers Care Logging Rafter Laborer Name Role Phone PP Unavailable CCM Unavailable Summary Purpose Interface Exchange Insurance Providers Payer name Policy type / Coverage type Covered democrat ID Effective Begin Date Effective End Date WPS Medicare Part B Medicare Part B [id number] Unknown Unknown Cigna health and Life Insurance Medi care Part B [id number] Unknown Unkno wn Family History Family History data not found Social History Social History Element Codes Description Effective Dates Marital status Unknown M arried [place] 01/19/2019 Number of children Unknown 2 01/19/2019 Employment Unknown Retir ed 01/19/[address]: 2171721 Quit over 10 years ago 01/19/[address]: 523676817 Never drinks alcohol 01/19/2019 Allergies, Adverse Reactions, [...] (3rd IS) 2.64 uIU/mL 01/20/2019 Comp Metabolic Rsi099 NA 140 mEq/L 01/20/2019 Comp Metabolic Syf128 K 3.9 mEq/L 01/20/2019 Comp Metabolic Tmh073 CL 104 mEq/L 01/20/2019 Comp Metabolic Azx396 CO2 26.0 mEq/L 01/20/2019 Comp Metabolic Zeg742 AN ION GAP 14 01/20/2019 Comp Metabolic Rxp647 GL UCOSE 99 mg/dL 01/20/2019 Comp Metabolic Aia131 Cr eat 0.8 mg/dL 01/20/2019 Comp Metabolic Ijn615 eG FR 104 ml/min/1.73m2 01/05 Comp Metabolic Qni837 BUN 11 mg/dL 01/20/2019 Comp Metabolic Xdl576 B/ C Ratio 14.3 Ratio 01/20/2019 Comp Metabolic Rns492 CA LCIUM 8.9 mg/dL 01/20/2019 Comp Metabolic Lex083 AL K PHOS 63 U/L 01/20/2019 Comp Metabolic Gnc966 T(SGOT) 16 U/L 01/20/2019 Comp Metabolic Mlo967 AL T(SGPT) 23 U/L 01/20/2019 Comp Metabolic Uar305 BI LI T 1.0 mg/dL 01/20/2019 Comp Metabolic Tnb865 AL BUMIN 4.2 g/dL 01/20/2019 Comp Metabolic Fna357 TP RO 6.3 g/dL 01/20/2019 Comp Metabolic Ntr756 GL OB 2.1 g/dL 01/20/2019 Comp Metabolic Qcv291 A/ G Ratio 2.0 Ratio 01/20/2019 Comp Metabolic Slg491 Os mo 279 mOsmo 01/20/2019 Cbc With [...] 29.7 pg 01/19/2019 Cbc With Differential Ord2 [place]% 7.9 % 01/19/2019 Cbc With Differential Ord2 [...] 0.77 K/ul 01/19/2019 Cbc With Differential Ord2 [place] ABS# 0.4 K/ul 01/19/2019 Cbc With Differential [...] 1: 122/66 Code: 8480-6 BMI: 28.5 Code: 79045-0 Heart Rate 1: 62 bpm Height: 5'10" [...] findings[ICD10: Z00.01] [facility] CPT-4: 12554 01/19/2019 Plan of Care Planned Activity Notes C odes Status Date Care Plan: X-RAY EXAM NECK SPINE 2-3 VW LOINC : 07396-0 Pending 01/20/2019 Care Plan: X-RAY EXAM L-S SPINE 2/3 VWS LOINC : 94319-3 Pending 01/20/2019 Visit Plan: Well Adult - [...]
--- NOTE | 2020-03-19 09:23 | ED Respiratory ---
General Stated Complaint: FEVER Source: patient Exam Limitations: no limitations History of Present Illness Date Seen by Provider: Mar 19, 2020 Time Seen by Provider: 08:50 Initial Comments The patient arrives to the ER from home by EMS with chief complaint of shortness of air, blood in the urine and vomiting of blood in the vomit. He woke up about 3 in the morning feeling fevers so he took 800 mg of ibuprofen. He had a normal, soft stool but had blood from urine. He is having some pain in his flank that he stated was consistent with his history of kidney stones. He follows with Dr. Cormier, urology. He has no history of COPD asthma or heart problems. He does not have a history of obstructive sleep apnea or use supplemental oxygen. Primary care doctor is Dr. Maldonado. He was nauseated but EMS gave him 4 mg Zofran which took away his nausea. He was attending to breathe according to EMS and they said his oxygen sats were 92% on room air so they initiated nasal cannula which brought him up to 100% and relaxed his breathing. Allergies and Home Medications Allergies Coded Allergies: No Known Drug Allergies (Unverified , 05/09/11) Home Medications Hydrocodone Bit/Acetaminophen 1 Tab Tab, 1-2 EA PO Q4HR PRN, (Reported) MAY TAKE 1 OR 2 TABLETS BY MOUTH EVERY 4 HRS NEEDED FOR PAIN. Patient Home Medication List Home Medication List Reviewed: Yes Review of Systems Review of Systems Constitutional: chills, fever, malaise EENTM: No ear discharge, No ear pain Respiratory: No cough; short of breath Cardiovascular: No chest pain, No edema Gastrointestinal: abdominal pain; No constipation, No diarrhea; nausea, vomiti ng Genitourinary: No decreased output, No discharge; dysuria, hematuria Musculoskeletal: No back pain, No joint pain Skin: No pruritus, No rash All Other Systems Reviewed Negative Unless Noted: Yes Past Rrtpkce-Avdnok-Emuyyf Hx Patient Social History Alcohol Use: Denies Use Recreational Drug Use: No Smoking Status: Never a Smoker Past Medical History Reproductive Disorders: No Physical Exam Vital Signs - First Documented 03/19/20 03/19/20 08:57 09:00 Temp 36.8 Pulse 91 Resp 16 B/P (MAP) 138/75 (96) Pulse Ox 99 O2 Delivery Nasal Cannula O2 Flow Rate 4.00 Capillary Refill : Height: '" Weight: lbs. oz. kg; BMI Method: General Appearance: WD/WN, no apparent distress Eyes: Bilateral Eye Normal Inspection, Bilateral Eye PERRL, Bilateral Eye EOMI HEENT: PERRL/EOMI, pharynx normal Neck: full range of motion, supple, normal inspection Respiratory: lungs clear, normal breath sounds, no accessory muscle use, respiratory distress (moderate with oxygen sats of 99% on 3 L by nasal cannula) Cardiovascular: normal peripheral pulses, regular rate, rhythm, no edema Gastrointestinal: non tender, soft Extremities: normal range of motion, normal capillary refill Neurologic/Psychiatric: alert, normal mood/affect, oriented x 3 Skin: normal color, warm/dry Focused Exam Sepsis Stage: Severe Sepsis Possible Source: Genitouriary Lactate Level 03/19/20 09:05: Lactic Acid Level 2.25*H 03/19/20 11:00: Lactic Acid Level 1.60 Time of Focused Exam: 11:22 Respiratory: Lungs Clear, Normal Breath Sounds, No Accessory Muscle Use, No Respiratory Distress Cardiovascular: Regular Rate, Rhythm, No Edema Capillary Refill: Less Than 3 Seconds Peripheral Pulses: 2+ Radial Pulses (R), 2+ Radial Pulses (L) Skin: normal color, warm/dry Lactic Acid Level Laboratory Tests Test 03/19/20 09:05 03/19/20 11:00 Lactic Acid Level 2.25 MMOL/L (0.50-2.00) *H 1.60 MMOL/L (0.50-2.00) Within 3hrs of presentation: Admin fluids, Admin ABX, Blood cultures prior to ABX's, Focus exam, Lactate level Progress/Results/Core Measures Suspected Sepsis SIRS Temperature: Pulse: Respiratory Rate: Laboratory Tests 03/19/20 09:05: White Blood Count 3.5L Blood Pressure / Mean: 03/19/20 09:05: Lactic Acid Level 2.25*H 03/19/20 11:00: Lactic Acid Level 1.60 Laboratory Tests 03/19/20 09:05: Creatinine 1.09, Platelet Count 141, Total Bilirubin 0.9 03/19/20 09:55: INR Comment 1.1 Results/Orders Lab Results Laboratory Tests Test 03/19/20 09:05 03/19/20 09:08 03/19/20 09:25 03/19/20 09:55 Range/Units White Blood Count 3.5 L 4.3-11.0 10^3/uL Red Blood Count 5.08 4.35-5.85 10^6/uL Hemoglobin 15.0 13.3-17.7 G/DL Hematocrit 45 40-54 % Mean Corpuscular Volume 89 80-99 FL Mean Corpuscular Hemoglobin 30 25-34 PG Mean Corpuscular Hemoglobin Concent 33 32-36 G/DL Red Cell Distribution Width 14.6 H 10.0-14.5 % Platelet Count 141 130-400 10^3/uL Mean Platelet Volume 9.8 7.4-10.4 FL Neutrophils (%) (Auto) 93 H 42-75 % Lymphocytes (%) (Auto) 5 L 12-44 % Monocytes (%) (Auto) 1 0-12 % Eosinophils (%) (Auto) 2 0-10 % Basophils (%) (Auto) 0 0-10 % Neutrophils # (Auto) 3.2 1.8-7.8 X 10^3 Lymphocytes # (Auto) 0.2 L 1.0-4.0 X 10^3 Monocytes # (Auto) 0.0 0.0-1.0 X 10^3 Eosinophils # (Auto) 0.1 0.0-0.3 10^3/uL Basophils # (Auto) 0.0 0.0-0.1 10^3/uL Neutrophils % (Manual) 72 % Lymphocytes % (Manual) 8 % Monocytes % (Manual) 0 % Eosinophils % (Manual) 2 % Basophils % (Manual) 0 % Band Neutrophils 18 % Blood Morphology Comment NORMAL Erythrocyte Sedimentation Rate 5 0-30 MM/HR Sodium Level 144 135-145 MMOL/L Potassium Level 4.2 3.6-5.0 MMOL/L Chloride Level 110 H 98-107 MMOL/L Carbon Dioxide Level 22 21-32 MMOL/L Anion Gap 12 5-14 MMOL/L Blood Urea Nitrogen 16 7-18 MG/DL Creatinine 1.09 0.60-1.30 MG/DL Estimat Glomerular Filtration Rate > 60 BUN/Creatinine Ratio 15 Glucose Level 161 H 70-105 MG/DL Lactic Acid Level 2.25 *H 0.50-2.00 MMOL/L Calcium Level 9.3 8.5-10.1 MG/DL Corrected Calcium 9.2 8.5-10.1 MG/DL Total Bilirubin 0.9 0.1-1.0 MG/DL Aspartate Amino Transf (AST/SGOT) 35 H 5-34 U/L Alanine Aminotransferase (ALT/SGPT) 49 0-55 U/L Alkaline Phosphatase 83 40-136 U/L C-Reactive Protein High Sensitivity 1.16 H 0.00-0.50 MG/DL Total Protein 6.5 6.4-8.2 GM/DL Albumin 4.1 3.2-4.5 GM/DL Procalcitonin 0.07 <0.10 NG/ML Blood Gas Puncture Site RT RAD Blood Gas Patient Temperature 98.8 Arterial Blood pH 7.37 7.37-7.43 Arterial Blood Partial Pressure CO2 36 35-45 MMHG Arterial Blood Partial Pressure O2 176 H 79-93 MMHG Arterial Blood HCO3 20 L 23-27 MMOL/L Arterial Blood Total CO2 21.4 21.0-31.0 MMOL/L Arterial Blood Oxygen Saturation 100 94-100 % Arterial Blood Base Excess -4.1 L -2.5-2.5 MMOL/L Justin Test YES-POS Blood Gas Ventilator Setting NO Blood Gas Inspired Oxygen 3 L Urine Color YELLOW Urine Clarity CLEAR Urine pH 5.5 5-9 Urine Specific [place] >=1.030 1.016-1.022 Urine Protein 1+ H NEGATIVE Urine Glucose (UA) NEGATIVE NEGATIVE Urine Ketones NEGATIVE NEGATIVE Urine Nitrite NEGATIVE NEGATIVE Urine Bilirubin NEGATIVE NEGATIVE Urine Urobilinogen 0.2 < = 1.0 MG/DL Urine Leukocyte Esterase 2+ H NEGATIVE Urine RBC (Auto) 3+ H NEGATIVE Urine RBC TNTC H /HPF Urine WBC TNTC H /HPF Urine Squamous Epithelial Cells RARE /HPF Urine Crystals NONE /LPF Urine Bacteria FEW H /HPF Urine Casts NONE /LPF Urine Mucus NEGATIVE /LPF Urine Culture Indicated CULTURE PENDING Prothrombin Time 14.3 12.2-14.7 SEC INR Comment 1.1 0.8-1.4 Activated Partial Thromboplast Time 25 24-35 SEC D-Dimer 0.53 H 0.00-0.49 UG/ML Test 03/19/20 11:00 Range/Units Lactic Acid Level 1.60 0.50-2.00 MMOL/L My Orders Orders - RELL MANN Cbc With Automated Diff (03/19/20 09:12) Comprehensive Metabolic Panel (03/19/20 09:12) Blood Culture (03/19/20 09:12) Sputum Culture (03/19/20 09:12) Urinalysis (03/19/20 09:12) Urine Culture (03/19/20 09:12) Protime With Inr (03/19/20 09:12) Partial Thromboplastin Time (03/19/20 09:12) Chest 1 View, Ap/Pa Only (03/19/20 09:12) Ed Iv/Invasive Line Start (03/19/20 09:12) Ed Iv/Invasive Line Start (03/19/20 09:12) Vital Signs Adult Sepsis Patie Q15M (03/19/20 09:12) O2 (03/19/20 09:12) Remove Rings In Anticipation O (03/19/20 09:12) Lactic Acid Analyzer (03/19/20 09:12) Ns Iv 1000 Ml (Sodium Chloride 0.9%) (03/19/20 09:12) Ceftriaxone For Iv Use (Rocephin For I (03/19/20 09:15) Azithromycin Injection (Zithromax Inject (03/19/20 09:15) Ed Iv/Invasive Line Start (03/19/20 09:12) Ns Iv 1000 Ml (Sodium Chloride 0.9%) (03/19/20 09:12) Arterial Blood Gas (03/19/20 09:12) Fibrin Degradation Products (03/19/20 09:12) Procalcitonin (Pct) (03/19/20 09:12) Hs C Reactive Protein (03/19/20 09:12) Erythrocyte Sedimentation Rate (03/19/20 09:12) Coronavirus Sars-Cov-2 So 2018 (03/19/20 09:12) Ct Abdomen/Pelvis Wo (03/19/20 09:25) Manual Differential (03/19/20 09:05) Ed Iv/Invasive Line Start (03/19/20 10:16) Ns Iv 500 Ml (Sodium Chloride 0.9%) (03/19/20 10:16) Medications Given in ED Current Medications Medications Dose Ordered Sig/[place] Route Start Time Stop Time Status Last Admin Dose Admin Azithromycin 500 mg/Sodium Chloride 250 ml @ 250 mls/hr ONCE ONCE IV 03/19/20 09:15 03/19/20 10:14 DC 03/19/20 10:05 250 MLS/HR Ceftriaxone Sodium 1000 mg/ Sterile Water 10 ml @ 200 mls/hr ONCE ONCE IV 03/19/20 09:15 03/19/20 09:17 DC 03/19/20 09:35 200 MLS/HR Sodium Chloride 500 ml @ 0 mls/hr Q0M ONCE IV 03/19/20 10:16 03/19/20 10:18 DC 03/19/20 11:58 1,000 MLS/HR Vital Signs/I&O 03/19/20 03/19/20 08:57 09:00 Temp 36.8 Pulse 91 Resp 16 B/P (MAP) 138/75 (96) Pulse Ox 99 O2 Delivery Nasal Cannula Nasal Cannula O2 Flow Rate 4.00 Capillary Refill : Progress Note #1: Time: 09:23 Progress Note His heart rates in the 90s he has increased work of breathing with a respiratory rate into the 20s per EMS so were doing a septic workup. Suspect he passed a kidney stones we'll get a CT of his abdomen and pelvis without IV contrast. We'll do a COVID swab because he cannot explain his hypoxia. ABG obtained. Chest x-ray. 2 L of fluid would be greater than 20 mL per kilogram based on his stated weight of 192 pounds. Progress Note #2: Time: 10:12 Progress Note ABG does not support hypoxia. I suspect he is clamping down peripherally due to sepsis which is causing the poor oxygenation and his periphery. He has good waveform on the pulse oximetry but I suspect his source of sepsis and elevated lactate would be more likely the Urinary system. We initially dosed him with Rocephin and azithromycin which would cover for pneumonia as well as urinary. Urinalysis and chest x-ray still pending. Plan to give him another 500 cc to b ring him up to about 30 mL/kg. Progress Note #3: Time: 10:31 Progress Note After reviewing the ABG we discontinue the nasal cannula. Patient's oxygen sats stayed 95-96% and he has demonstrated no overt evidence of shortness of air. No cough. Diagnostic Imaging Diagonstic Imaging: Xray Plain Films/CT/US/NM/MRI: chest Comments No acute cardio pulmonary processes noted on one view chest x-ray. NAME: ANEUDY CHAMBERLAIN [facility] REC#: [id number] PT STATUS: ADM IN : 1940 PHYSICIAN: RELL AMNN MD ADMIT DATE: 03/19/20/4TH Draft Date of Exam:03/19/20 CHEST 1 VIEW, AP/PA ONLY INDICATION: Fever. TECHNIQUE: Single view chest 11:17 AM. CORRELATION STUDY: 05/05/2018 FINDINGS: Minimal scarring and or atelectasis at the left lung base. No focal consolidating infiltrate. Heart size and vasculature overall appear generally stable given difference technique. IMPRESSION: 1. Minimal atelectasis and/or scarring about the lung bases. No consolidating infiltrate. Dictated on workstation # [id number] Dict: 03/19/20 1129 Trans: 03/19/20 1131 [facility] [id number] Interpreted by: NUSRAT AGUILAR DO Electronically signed by: Reviewed: Reviewed by Me Diagonstic Imaging: CT Plain Films/CT/US/NM/MRI: abdomen, pelvis Comments NAME: ANEUDY CHAMBERLAIN MED REC#: [id number] PT STATUS: REG ER : 1940 PHYSICIAN: RELL MANN MD ADMIT DATE: 03/19/20/ER Draft Date of Exam:03/19/20 CT ABDOMEN/PELVIS WO PROCEDURE: CT abdomen and pelvis without contrast. TECHNIQUE: Multiple contiguous axial images were obtained through the abdomen and pelvis without the use of intravenous contrast. Auto Exposure Controls were utilized during the CT exam to meet ALARA standards for radiation dose reduction. INDICATION: Abdominal pain. No prior studies are available for comparison. Lung bases demonstrate a 7 mm subpleural nodule in the lateral aspect of the right middle lobe, indeterminate. No other discrete mass is detected. There are coronary arterial calcifications present. The liver does show some generalized low density suggestive of hepatic steatosis. Gallbladder is surgically absent. No biliary duct dilatation is seen. Pancreas and spleen are unremarkable. No adrenal mass is identified. Kidneys contain cortical low densities, largest in the upper pole left kidney measuring approximately 9 cm and most suggestive of cysts. There is a tiny nonobstructing calculus in the right kidney. No hydronephrosis is seen. Aorta is calcified but non-aneurysmal. Small and large bowel loops are of normal caliber. There is no evidence of bowel obstruction. There is diverticulosis of the sigmoid colon but no evidence of acute diverticulitis. The bladder is unremarkable. No free fluid or fluid collection is identified. Prostate does appear to be enlarged. Evaluation of the bony structures demonstrates ununited fracture of the right transverse process of L3 and L4. These may be chronic. No acute bony abnormality is detected. IMPRESSION: 1. 7 mm right middle lobe nodule, indeterminate. Follow-up in 6-12 months could be performed to confirm stability. 2. Hepatic steatosis. 3. Uncomplicated diverticulosis. 4. Bilateral renal cysts and tiny nonobstructing right renal calculus. 5. Prostatomegaly. 6. No acute feature is detected. Dictated on workstation # [id number] Dict: 03/19/20 1035 Trans: 03/19/20 1042 [facility] [id number] Interpreted by: SANKET AJ MD Electronically signed by: Reviewed: Reviewed by Me Departure Communication (Admissions) Time/Spoke to Admitting Phy: 11:[address] Patel she agrees with Rocephin and admission to the floor for severe sepsis and UTI. We did review imaging from previous visits outpatient. Impression Primary Impression: UTI (urinary tract infection) Qualified Codes: N30.01 - Acute cystitis with hematuria Additional Impressions: Sepsis Qualified Codes: A41.9 - Sepsis, unspecified organism; R65.20 - Severe sepsis without septic shock Pleural nodule Disposition: ADMITTED INPATIENT Condition: Stable Admissions Decision to Admit Reason: Admit from ER (General) Decision to Admit/Date: Mar 19, 2020 Time/Decision to Admit Time: 10:40 Departure-Patient Inst. Referrals: CHAD MALDONADO MD (PCP/Family) Primary Care Physician RELL MANN Mar 19, 2020 09:23
[2020-03-19 09:24] LABS: ABG BASE EXCESS -4.1 MMOL/L (-2.5-2.5); ABG OXYGEN SATURATION 100 % (94-100); ABG PCO2 36 MMHG (35-45); ABG PH 7.37 (7.37-7.43); ABG PO2 176 MMHG (79-93); ABG TCO2 21.4 MMOL/L (21.0-31.0)
[2020-03-19 09:27] LABS: BASOPHILS % (AUTO) 0 % (0-10); EOSINOPHILS # (AUTO) 0.1 10^3/uL (0.0-0.3); EOSINOPHILS % (AUTO) 2 % (0-10); HEMATOCRIT 45 % (40-54); LYMPHOCYTES # (AUTO) 0.2 X 10^3 (1.0-4.0); LYMPHOCYTES % (AUTO) 5 % (12-44); MEAN CORPUSCULAR HEMOGLOBIN 30 PG (25-34); MEAN CORPUSCULAR HGB CONC 33 G/DL (32-36); MEAN CORPUSCULAR VOLUME 89 FL (80-99); MEAN PLATELET VOLUME 9.8 FL (7.4-10.4); MONOCYTES % (AUTO) 1 % (0-12); NEUTROPHILS # (AUTO) 3.2 X 10^3 (1.8-7.8); NEUTROPHILS % (AUTO) 93 % (42-75); PLATELET COUNT 141 10^3/uL (130-400); RED CELL DISTRIBUTION WIDTH 14.6 % (10.0-14.5); WHITE BLOOD COUNT 3.5 10^3/uL (4.3-11.0)
[2020-03-19 09:31] LABS: ALLENS TEST YES-POS; INSPIRED O2 3 L
[2020-03-19 09:32] LABS: PATIENT TEMP 98.8; VENTILATOR NO
--- NOTE | 2020-03-19 09:32 | NUR ---
UPDATED PT'S DAUGHTER ON STATUS.
--- NOTE | 2020-03-19 09:36 | NUR ---
OXYGEN TURNED DOWN TO 2L.
[2020-03-19 09:43] LABS: ALBUMIN 4.1 GM/DL (3.2-4.5); CHLORIDE 110 MMOL/L (98-107); POTASSIUM 4.2 MMOL/L (3.6-5.0); SODIUM 144 MMOL/L (135-145)
[2020-03-19 09:44] LABS: CALCIUM 9.3 MG/DL (8.5-10.1)
[2020-03-19 09:45] LABS: GLUCOSE 161 MG/DL (70-105)
[2020-03-19 09:46] LABS: TOTAL PROTEIN 6.5 GM/DL (6.4-8.2)
[2020-03-19 09:47] LABS: BILIRUBIN,TOTAL 0.9 MG/DL (0.1-1.0); CARBON DIOXIDE 22 MMOL/L (21-32)
[2020-03-19 09:49] LABS: ALKALINE PHOSPHATASE 83 U/L (40-136); CREATININE SERUM 1.09 MG/DL (0.60-1.30); GFR ESTIMATED > 60
[2020-03-19 09:50] LABS: BUN/CREATININE RATIO 15
[2020-03-19 09:52] LABS: ALANINE AMINOTRANSFERASE 49 U/L (0-55)
[2020-03-19 09:57] LABS: ERYTHROCYTE SEDIMENTATION RATE 5 MM/HR (0-30)
--- NOTE | 2020-03-19 09:59 | NUR ---
LAB CONTACTED CONCERING UA NOT BEING RAN.
--- NOTE | 2020-03-19 10:00 | NUR ---
PULSE OX 99% ON 2L. OXYGEN TURNED OFF.
[2020-03-19 10:04] LABS: BILIRUBIN,URINE NEGATIVE (NEGATIVE); CLARITY,URINE CLEAR; COLOR,URINE YELLOW; GLUCOSE, URINE (UA) NEGATIVE (NEGATIVE); KETONES,URINE NEGATIVE (NEGATIVE); LEUKOCYTE ESTERASE ,URINE 2+ (NEGATIVE); NITRITE,URINE NEGATIVE (NEGATIVE); PH,URINE 5.5 (5-9); PROTEIN,URINE 1+ (NEGATIVE)
--- NOTE | 2020-03-19 10:15 | NUR ---
PULSE OX 96% RA.
[2020-03-19 10:22] LABS: FIBRIN DEGRADATION PRODUCTS 0.53 UG/ML (0.00-0.49); INR 1.1 (0.8-1.4); PROTHROMBIN TIME PATIENT 14.3 SEC (12.2-14.7)
[2020-03-19 10:23] LABS: BACTERIA,URINE FEW /HPF; RBC,URINE TNTC /HPF; SQUAMOUS EPITHELIAL CELL,UR RARE /HPF; WBC,URINE TNTC /HPF
[2020-03-19 10:27] LABS: BAND NEUTROPHILS 18 %; BASOPHILS % (MANUAL) 0 %; EOSINOPHILS % (MANUAL) 2 %; LYMPHOCYTES % (MANUAL) 8 %; MONOCYTES % (MANUAL) 0 %; NEUTROPHILS % (MANUAL) 72 %
[2020-03-19 10:28] LABS: RBC MORPH NORMAL
--- NOTE | 2020-03-19 10:42 | Diagnostic Imaging Report ---
PROCEDURE: CT abdomen and pelvis without contrast. TECHNIQUE: Multiple contiguous axial images were obtained through the abdomen and pelvis without the use of intravenous contrast. Auto Exposure Controls were utilized during the CT exam to meet ALARA standards for radiation dose reduction. INDICATION: Abdominal pain. No prior studies are available for comparison. Lung bases demonstrate a 7 mm subpleural nodule in the lateral aspect of the right middle lobe, indeterminate. No other discrete mass is detected. There are coronary arterial calcifications present. The liver does show some generalized low density suggestive of hepatic steatosis. Gallbladder is surgically absent. No biliary duct dilatation is seen. Pancreas and spleen are unremarkable. No adrenal mass is identified. Kidneys contain cortical low densities, largest in the upper pole left kidney measuring approximately 9 cm and most suggestive of cysts. There is a tiny nonobstructing calculus in the right kidney. No hydronephrosis is seen. Aorta is calcified but non-aneurysmal. Small and large bowel loops are of normal caliber. There is no evidence of bowel obstruction. There is diverticulosis of the sigmoid colon but no evidence of acute diverticulitis. The bladder is unremarkable. No free fluid or fluid collection is identified. Prostate does appear to be enlarged. Evaluation of the bony structures demonstrates ununited fracture of the right transverse process of L3 and L4. These may be chronic. No acute bony abnormality is detected. IMPRESSION: 1. 7 mm right middle lobe nodule, indeterminate. Follow-up in 6-12 months could be performed to confirm stability. 2. Hepatic steatosis. 3. Uncomplicated diverticulosis. 4. Bilateral renal cysts and tiny nonobstructing right renal calculus. 5. Prostatomegaly. 6. No acute feature is detected. Dictated by: Dictated on workstation # [id number]
--- NOTE | 2020-03-19 11:31 | Diagnostic Imaging Report ---
INDICATION: Fever. TECHNIQUE: Single view chest 11:17 AM. CORRELATION STUDY: 05/05/2018 FINDINGS: Minimal scarring and or atelectasis at the left lung base. No focal consolidating infiltrate. Heart size and vasculature overall appear generally stable given difference technique. IMPRESSION: 1. Minimal atelectasis and/or scarring about the lung bases. No consolidating infiltrate. Dictated by: Dictated on workstation # [id number]
[2020-03-19] MEDS: NS IV 500 ML 500 ML IV ONE ×2 (11:58→13:07)
[2020-03-19] MEDS ORDERED: ONDANSETRON 4 MG/2 ML (SDV) Z0FRAN IV PRN (12:15)
[2020-03-19] MEDS ORDERED: CATHETER FLUSH 10 ML SYR IV PRN (12:30)
--- NOTE | 2020-03-19 12:32 | NUR ---
PTS DAUGHTER UPDATED ON ADMISSION.
--- NOTE | 2020-03-19 12:39 | NUR ---
JACOBY JACOBS [facility] [phone]
--- OUTSIDE RECORDS SUMMARY | 2020-03-19 12:46 | XMS REPORT | Continuity of Care Document ---
Author Organization Unknown Address Unknown Phone Unavailable Allergies Active Description Code Type Severity Reaction Onset Reported/Identified Relationship to Patient Clinical Status Yes No Known Drug Allergies [id number] Drug Allergy Unknown N/A 05/09/2011 Medications There [...] OTHER INTERVERTEBRAL DISC DISPLACEMENT, 01/25/2019 DOMENICO HURST BARREL BRIDGE ASSEMBLER Ot Z90.49 ACQUIRED ABSENCE OF OTHER SPECIFIED PART 02/08/2019 DOMENICO HURST APRN Ot M47.812 SPONDYLOSIS W/O MYELOPATHY OR RADICULOPA 02/08/2019 DOMENICO HURST APRN Ot M47.816 SPONDYLOSIS W/O MYELOPATHY OR RADICULOPA 02/08/2019 DOMENICO HURST APRN Ot M50.20 OTHER CERVICAL DISC DISPLACEMENT, UNSP C 02/08/2019 DOMENICO HURST BARREL BRIDGE ASSEMBLER Ot M51.26 OTHER INTERVERTEBRAL DISC DISPLACEMENT, 02/08/2019 DOMENICO HURST APRN Ot Z90.49 ACQUIRED ABSENCE OF OTHER SPECIFIED PART 06/02/2019 CHAD MALDONADO MD Ot R0 5 COUGH 06/02/2019 CHAD MALDONADO MD Ot R07.89 OTHER CHEST PAIN 06/02/2019 CHAD MALDONADO MD Ot Z87.891 PERSONAL HISTORY OF NICOTINE DEPENDENCE 02/02/2020 W 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 [place], [place] 02/02/2020 W N20.0 Kidn ey stone on right side [place] 02/02/2020 W N40.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 [place] 2020 DOMENICO HURST APRN Ot M47.812 SPONDYLOSIS [...] s hematuria Neha Sheikh 02/29/2020 NEHA SHEIKH JUDO INSTRUCTOR Ot N20.0 CALCULUS OF KIDNEY 03/01/2020 W M54.5 Low back pain Joel [place] 03/01/2020 W N39.45 Uri nary incontinence with continuous leakage Joel [place] 03/01/2020 W N40.1 Enla rged prostate with [...] CULTURE RESULTS 50,000-100,000 Gram N egative Lactose Hotel Operation Manager KRISTY / ID to Follow MEDIA PLATED [...] <=16 Piperacillin <=16 Tigecycline <=2 Tobramycin <=4 Complete blood count (CBC) with automate d white blood cell (WBC) differential - 03/19/20 09:05 Blood leukocytes automated count (number/volume) 3.5 10*3/uL 4.3-11.0 Blood erythrocytes automated count (number/volume) 5.08 10*6/uL 4.35-5.85 Venous blood hemoglobin measurement (mass/volume) 15.0 g/dL 13.3-17.7 Blood hematocrit (volume fraction) 45 % 40-54 Automated erythrocyte mean corpuscular volume 89 [ foz_us] 80-99 Automated erythrocyte mean corpuscular h emoglobin (mass per erythrocyte) 30 pg 25-34 Automated erythrocyte mean corpuscular h emoglobin concentration measurement (mass/volume) 33 g/dL 32-36 Automated erythrocyte distribution width ratio 14. 6 % 10.0- 14.5 Automated blood platelet count (count/volume) 141 10*3/uL 130-400 Automated blood platelet mean volume measurement 9.8 [foz_us] 7.4-10.4 Automated blood neutrophils/100 leukocytes 93 % 42-75 Automated blood lymphocytes/100 leukocytes 5 % 12-44 Blood monocytes/100 leukocytes 1 % 0-12 Automated blood eosinophils/100 leukocytes 2 % 0-10 Automated blood basophils/100 leukocytes 0 % 0-10 Blood neutrophils automated count (number/volume) 3.2 10*3 1.8-7.8 Blood lymphocytes automated count (number/volume) 0.2 10*3 1.0-4.0 Blood monocytes automated count (number/volume) 0. 0 10*3 0.0-1.0 Automated eosinophil count 0.1 10*3/uL 0 .0-0.3 Automated blood basophil count (count/volume) 0.0 10*3/uL 0.0-0.1 Comprehensive metabolic panel - 03/19/20 09:05 Serum or plasma sodium measurement (moles/volume) 144 mmol/L 135-145 Serum or plasma potassium measurement (moles/volume) 4.2 mmol/L 3.6-5.0 Serum or plasma chloride measurement (moles/volume) 110 mmol/L 98-107 Carbon dioxide 22 mmol/L 21-32 Serum or plasma anion gap determination (moles/volume) 12 mmol/L 5-14 Serum or plasma urea nitrogen measurement (mass/volume ) 16 mg/dL 7-18 Serum or plasma creatinine measurement (mass/volume) 1.09 mg/dL 0.60-1.30 Serum or plasma urea nitrogen/creatinine mass ratio 15 NRG Serum or plasma creatinine measurement w ith calculation of estimated glomerular filtration rate > NRG Serum or plasma glucose measurement (mass/volume) 161 mg/dL 70-105 Serum or plasma calcium measurement (mass/volume) 9.3 mg/dL 8.5-10.1 Serum or plasma total bilirubin measurement (mass/volu me) 0.9 mg/dL 0.1-1.0 Serum or plasma alkaline phosphatase caryn surement (enzymatic activity/volume) 83 U/L 40-136 Serum or plasma aspartate aminotransfera se measurement (enzymatic activity/volume) 35 U/L 5-34 Serum or plasma alanine aminotransferase measurement (enzymatic activity/volume) 49 U/L 0-55 Serum or plasma protein measurement (mass/volume) 6.5 g/dL 6.4-8.2 Serum or plasma albumin measurement (mass/volume) 4.1 g/dL 3.2-4.5 CALCIUM CORRECTED 9.2 mg/dL 8.5-10.1 Blood lactic acid measurement (moles/vol ume) - 03/19/20 09:05 Blood lactic acid measurement (moles/volume) 2.25 mmol/L 0.50-2.00 PROCALCITONIN (PCT) - 03/19/20 09:05 PROCALCITONIN (PCT) 0.07 ng/mL <0.10 Manual absolute plasma cell count - 03/07 11/24 09:05 Blood monocytes/100 leukocytes 0 % NRG Manual blood segmented neutrophils/100 leukocytes 72 % NRG Blood band neutrophils/100 leukocytes 18 % NRG Manual blood lymphocytes/100 leukocytes 8 % NRG Manual eosinophils/100 leukocytes in nose 2 % NRG Manual blood basophils/100 leukocytes 0 % NRG Blood erythrocyte morphology finding identification NORMAL NRG Serum or plasma C reactive protein measu rement (mass/volume) - 03/19/20 09:05 Serum or plasma C reactive protein measurement (mass/v olume) 1.16 mg/dL 0.00-0.50 Erythrocyte sedimentation rate by masoud gren method - 03/19/20 09:05 Erythrocyte sedimentation rate by westergren method 5 mm 0- 30 Arterial blood gas measurement - 0 09:08 Blood pCO2 36 mm[Hg] 35-45 Blood pO2 176 mm[Hg] 79-93 Arterial blood bicarbonate measurement (moles/volume) 20 mmol/L 23-27 Arterial blood base excess by calculation -4.1 mmo l/L -2.5-2.5 Arterial blood oxygen saturation measurement 100 % 94-100 * Inhaled oxygen flow rate 3 L NRG Arterial blood pH measurement with patient temperature correction 7.37 7.37-7.43 Arterial blood carbon dioxide, total measurement (mole s/volume) 21.4 mmol/L 21.0-31.0 Body site RT RAD NRG Assessment of wrist artery patency prior to arterial p uncture YES-POS NRG Setting of ventilation mode NO NR G Measurement of body temperature 98.8 NRG Complete urinalysis with reflex to cultu re - 03/19/20 09:25 Urine color determination YELLOW NRG Urine clarity determination CLEAR NR G Urine pH measurement by test strip 5.5 5-9 Specific gravity of urine by test strip >= 1.016-1.022 Urine protein assay by test strip, semi-quantitative 1+ NEGATIVE Urine glucose detection by automated test strip NE GATIVE NEGATIVE Erythrocytes detection in urine sediment by light micr oscopy 3+ NEGATIVE Urine ketones detection by automated test strip NE GATIVE NEGATIVE Urine nitrite detection by test strip NEGATIVE NEGATIVE Urine total bilirubin detection by test strip NEGA TIVE NEGATIVE Urine urobilinogen measurement by automated test strip (mass/volume) 0.2 mg/dL < = 1.0 Urine leukocyte esterase detection by dipstick 2+ NEGATIVE Automated urine sediment erythrocyte cou nt by microscopy (number/high power field) TNTC NRG Automated urine sediment leukocyte count by microscopy (number/high power field) TNTC NRG Bacteria detection in urine sediment by light microsco py FEW NRG Squamous epithelial cells detection in u rine sediment by light microscopy RARE NRG Crystals detection in urine sediment by light microsco py NONE NRG Casts detection in urine sediment by light microscopy NONE NRG Mucus detection in urine sediment by light microscopy NEGATIVE NRG Complete urinalysis with reflex to culture CULTURE PENDING NRG PT panel in platelet poor plasma by coag ulation assay - 03/19/20 09:55 Prothrombin time (PT) in platelet poor plasma by coagu lation assay 14.3 s 12.2-14.7 INR in platelet poor plasma or blood by coagulation as say 1.1 0.8-1.4 Activated partial thromboplastin time (a PTT) in platelet poor plasma bycoagulation assay - 03/19/20 09:55 Activated partial thromboplastin time (a PTT) in platelet poor plasma bycoagulation assay 25 s 24-35 Fibrin D-dimer FEU measurement in platel et poor plasma (mass/volume) - 03/19/20 09:55 Fibrin D-dimer FEU measurement in platelet poor plasma (mass/volume) 0.53 ug/mL 0.00-0.49 Serum or plasma lactate measurement (mol es/volume) - 03/19/20 11:00 Serum or plasma lactate measurement (moles/volume) 1.60 mmol/L 0.50-2.00 Encounters ACCT No. Visit Date/Time Discharge Status Pt. Type Provider Facility Loc./Unit Complaint [id number] 01/23/2020 13:59:00 01/23/2020 23:59 :00 DIS Outpatient Francis Ambriz [id number] 01/21/2020 17:55:00 01/21/2020 23:59 :00 DIS Outpatient TAYA BRITO [id number] 01/21/2020 17:23:00 01/21/2020 23:59 :00 DIS Outpatient Francis Ambriz [id number] 02/27/2020 10:50:00 020 23:59:59 CLS Outpatient NEHA SHEIKH [facility] RAD KIDNEY STONE [id number] 2020 09:02:00 020 23:59:59 CLS Outpatient AJITH MONSIVAIS MD [facility] RAD RT KIDNEY STONES [id number] 05/05/2019 14:32:00 019 23:59:59 CLS Outpatient CHAD MALDONADO MD [facility] RAD HEST WALL PAIN,COUGH [id number] 01/19/2019 14:24:00 019 23:59:59 CLS Outpatient DOMENICO HURST APRN [facility] RAD HERINATED DISK [id number] 03/19/2020 09:29:00 Document Registration [id number] 01/18/2019 11:31:51 01/18/2019 23:59:5 9 [facility] Outpatient
--- NOTE | 2020-03-19 13:35 | NUR ---
CINTIAANEUDY Carlito admitted to room 425-1, with an admitting diagnosis of UTI, on 03/19/20 from ED via wheelchair, accompanied by staff .ANEUDY CHAMBERLAIN introduced to surroundings, call light, bed controls, phone, TV, temperature control, lights, meal times, smoking policy, visitor policy, side rail policy, bathrooms and showers. Patient Rights given to patient in the handbook. ANEUDY CHAMBERLAIN verbalizes understanding that [facility] is not responsible for the loss or damage to any personal effects or valuables that are kept in the patients posession during their hospitalization. The following Patient Care Plans and discharge were discussed with the patient. ANEUDY CHAMBERLAIN verbalizes understanding of Interdisciplinary Patient Education. Patient informed about the Rapid Response Team and its purpose.
[2020-03-19] MEDS: NS IV 1000 ML 1,000 ML IV SCH ×2 (13:39→17:45)
[2020-03-19 13:52] VITALS: BP 117/56
[2020-03-19] MEDS: HYDROcodone/APAP 5 MG/325 MG (LORTAB) TAB PO PRN ×2 (14:58→15:42)
[2020-03-19] MEDS ORDERED: AVOD0.5CAP PO (15:09)
[2020-03-19] MEDS ORDERED: TMSL.4C PO (15:09)
--- NOTE | 2020-03-19 15:10 | NUR ---
I WENT THROUGH THE EXTERNAL MED HISTORY, SPOKE WITH THE PATIENT AND [facility] TO COMPLETE THE MED REC. AVODART 0.5MG TAKES 1 DAILY LAST FILLED ON 03/15/2020 #DS TAMSULOSIN 0.4MG TAKES 1 AT BEDTIME LAST FILLED ON 03/15/2020 #DS
[2020-03-19] MEDS: TAMSULOSIN 0.4 MG (FLOMAX) CAP PO SCH (17:44)
[2020-03-19 17:46] VITALS: BP 117/57
[2020-03-19] MEDS: ACETAMINOPHEN 325 MG TABLET PO PRN (17:46)
[2020-03-19 17:51] VITALS: BP 117/57
[2020-03-19 20:59] VITALS: BP 117/57
--- NOTE | 2020-03-19 21:14 | History & Physical ---
History of Present Illness History of Present Illness Reason for visit/HPI PT IS AN 80 Y/O MALE WHO IS KNOWN TO ME FROM CLINIC. HE HAS HISTORY OF RENAL STONES AND FELT LIKE HE WAS PASSING A KIDNEY STONE IMMEDIATELY PRIOR TO HIS EVALUATION IN THE EMERGENCY DEPARTMENT. HE HAD GROSS BLOOD PER URETHRA AND HAD ELEVATION OF HIS LACTIC ACID WITH SYMPTOMS OF SEPSIS. HE WAS SWABBED FOR COVID 19 DUE TO HIS SYMPTOMS OF FEVER, CHILLS, AND WAS ADMITTED ON IV ANTIBIOTICS FOR SEPSIS FROM URINARY SYSTEM. Date of Admission Mar 19, 2020 at 11:31 Date Seen by a Provider: Mar 19, 2020 Time Seen by a Provider: 20:40 Attending Physician Chad Maldonado MD Admitting Physician Chad Maldonado MD Consult Allergies and Home Medications Allergies Coded Allergies: No Known Drug Allergies (Unverified , 05/09/11) Home Medications Dutasteride 0.5 Mg Cap, 0.5 MG PO DAILY, (Reported) Tamsulosin HCl 0.4 Mg Cap, 0.4 MG PO HS, (Reported) Patient Home Medication List Home Medication List Reviewed: Yes Past Mjydbph-Wdzdwe-Ovnwbi Hx Past Med/Social Hx: Reviewed Nursing Past Med/Soc Hx, Reviewed and Corrections made Patient Social History Marrital Status: Living Status: LIVES AT HOME WITH HIS DEMENTED SPOUSE AND KIDS IN CLOSE ATTENDANCE Employed/Student: retired Alcohol Use: Denies Use Recreational Drug Use: No Smoking Status: Never a Smoker 2nd Hand Smoke Exposure: No Physical Abuse Screen: No Sexual Abuse: No Recent Foreign Travel: No Contact w/other who traveled: No Recent Hopitalizations: Yes Recent Infectious Disease Expo: No Immunizations Up To Date Pediatric: No Seasonal Allergies Seasonal Allergies: Yes Past Medical History Surgeries: Appendectomy, Gallbladder Currently Using CPAP: No Currently Using BIPAP: No Reproductive: No Sexually Transmitted Disease: No Genitourinary: Kidney Stones, UTI-Chronic History of Blood Disorders: No Adverse Reaction to Blood Cobos: No Family History Reviewed Nursing Family Hx Alzheimer's disease 19 MOTHER Hypertension 19 FATHER Hypertension, Other Conditions/Hx (DEMENTIA) Review of Systems Constitutional: chills, fever, malaise, weakness EENTM: hearing loss; No hoarseness, No throat pain Respiratory: No cough, No dyspnea on exertion, No short of breath Cardiovascular: No chest pain, No palpitations Gastrointestinal: LLQ, abdominal pain Genitourinary: decreased output, dysuria (BURNING OF URETHRA WITH URINATION), hematuria Musculoskeletal: muscle weakness Skin: no symptoms reported Psychiatric/Neurological: Denies Anxiety, Denies Depressed; Weakness All Other Systems Reviewed Negative Unless Noted: Yes Physical Exam Vital Signs Vital Signs - First Documented 03/19/20 03/19/20 08:57 09:00 Temp 36.8 Pulse 91 Resp 16 B/P (MAP) 138/75 (96) Pulse Ox 99 O2 Delivery Nasal Cannula O2 Flow Rate 4.00 Capillary Refill : Less Than 3 Seconds Height, Weight, BMI Height: '" Weight: lbs. oz. kg; 35.29 BMI Method: General Appearance: WD/WN, Mild Distress (ILL APPEARING) Eyes: Bilateral Eye Normal Inspection, Bilateral Eye PERRL, Bilateral Eye EOMI HEENT: PERRL/EOMI, Pharynx Normal Neck: Full Range of Motion Respiratory: Chest Non Tender, No Accessory Muscle Use, No Respiratory Distress, Decreased Breath Sounds (IN BASES) Cardiovascular: Regular Rate, Rhythm, No Edema, Normal Peripheral Pulses Gastrointestinal: Normal Bowel Sounds, No Organomegaly, No Pulsatile Mass, Non Tender, Soft Rectal: Deferred Extremity: Normal Capillary Refill, Normal Inspection, Normal Range of Motion, Non Tender, No Calf Tenderness, No Pedal Edema Neurologic/Psychiatric: Alert, Oriented x3, No Motor/Sensory Deficits, Normal Mood/Affect, brand development manager II-XII Norm as Tested Skin: Normal Color, Warm/Dry Lymphatic: No Adenopathy Assessment/Plan Assessment and Plan SEPSIS URINARY TRACT INFECTION RECENT KIDNEY STONE PASSAGE BPH FEVER COVID-19 PUI LEUKOPENIA LACTIC ACID ELEVATION NAUSEA SEPSIS WITH URINARY TRACT INFECTION WITH LACTIC ACID ELEVATION - LACTIC ACID LEVEL ELEVATED ON ADMISSION - REPEAT WAS NORMAL. - CONTINUE WITH FLUIDS, IV ANTIBIOTIC OF ROCEPHIN, MONITOR LABS AND RESPONSE TO TREATMENT. RECENT KIDNEY STONE PASSAGE - SUPPORTIVE CARE AND PUSH FLUIDS IV AND ORAL. BPH - RESTART HOME REGIMEN OF TAMSULOSIN AND DUTASTERIDE FEVER AND COVID-19 PUI - TYLENOL PRN - WILL START PRN IBUPROFEN - WAITING ON COVID ANTIGEN TESTING REPORT - HOPEFULLY WILL HAVE BACK TOMORROW MORNING. LEUKOPENIA - REPEAT LABS IN MORNING. NAUSEA - - PROMETHAZINE AND ZOFRAN PRN DVT PROPHYLAXIS WITH LOVENOX AND SCD'S GI PROPHYLAXIS WITH PEPCID. Admission Diagnosis SEPSIS URINARY TRACT INFECTION RECENT KIDNEY STONE PASSAGE BPH FEVER COVID-19 PUI LEUKOPENIA LACTIC ACID ELEVATION NAUSEA Admission Status: Inpatient Order (span 2 midnights) Reason for Inpatient Admission: INPT ADMISSION FOR FEVER, SEPSIS, NEED FOR TX OF UTI WITH ANTIBIOTICS. Clinical Quality Measures DVT/VTE Risk/Contraindication: Risk Factor Score Per Nursin RFS Level Per Nursing on Admit: 3=High CHAD MALDONADO MD Mar 19, 2020 21:14
[2020-03-19] MEDS ORDERED: PROMETHAZINE INJ 25 MG/ML (PHENERGAN) AMP IVP PRN (21:30)
[2020-03-19] MEDS ORDERED: IBUPROFEN 600 MG (MOTRIN) TAB PO PRN (21:30)
[2020-03-19 22:30] VITALS: BP 82/44
--- NOTE | 2020-03-19 22:50 | NUR ---
DR MARTÍNEZ NOTIFIED ABOUT PT'S BLOOD PRESSURE 82/44 AND OUT PUT. NEW ORDERS TO BOLUS 500CC OF NS AND BLADDER SCAN PT IF GREATER THAN 350 TO PUT A SHERIDAN
[2020-03-19] MEDS ORDERED: NS IV 1000 ML 1,000 ML IV ONE (23:00)
[2020-03-20 00:06] VITALS: BP_SYST 124; BP_SYST 82; BP_DIAS 44; BP_DIAS 64
[2020-03-20] MEDS: HYDROcodone/APAP 5 MG/325 MG (LORTAB) TAB PO PRN ×2 (00:10→09:00)
[2020-03-20 04:00] VITALS: BP 100/53
[2020-03-20] MEDS: NS IV 1000 ML 1,000 ML IV SCH ×4 (05:51→22:23)
[2020-03-20 06:00] LABS: BASOPHILS % (AUTO) 0 % (0-10); EOSINOPHILS % (AUTO) 0 % (0-10); HEMATOCRIT 34 % (40-54); HEMOGLOBIN 11.2 G/DL (13.3-17.7); LYMPHOCYTES # (AUTO) 0.2 X 10^3 (1.0-4.0); LYMPHOCYTES % (AUTO) 9 % (12-44); MEAN CORPUSCULAR HEMOGLOBIN 30 PG (25-34); MEAN CORPUSCULAR HGB CONC 33 G/DL (32-36); MEAN CORPUSCULAR VOLUME 91 FL (80-99); MEAN PLATELET VOLUME 9.7 FL (7.4-10.4); MONOCYTES # (AUTO) 0.2 X 10^3 (0.0-1.0); MONOCYTES % (AUTO) 7 % (0-12); NEUTROPHILS # (AUTO) 2.1 X 10^3 (1.8-7.8); NEUTROPHILS % (AUTO) 84 % (42-75); PLATELET COUNT 86 10^3/uL (130-400); RED CELL DISTRIBUTION WIDTH 14.7 % (10.0-14.5); WHITE BLOOD COUNT 2.5 10^3/uL (4.3-11.0)
[2020-03-20 06:08] LABS: ALBUMIN 3.1 GM/DL (3.2-4.5); CHLORIDE 115 MMOL/L (98-107); POTASSIUM 3.9 MMOL/L (3.6-5.0); SODIUM 139 MMOL/L (135-145)
[2020-03-20 06:10] LABS: CALCIUM 7.3 MG/DL (8.5-10.1)
[2020-03-20 06:11] LABS: GLUCOSE 124 MG/DL (70-105); TOTAL PROTEIN 4.9 GM/DL (6.4-8.2)
[2020-03-20 06:12] LABS: CARBON DIOXIDE 17 MMOL/L (21-32)
[2020-03-20 06:13] LABS: BILIRUBIN,TOTAL 0.9 MG/DL (0.1-1.0)
[2020-03-20 06:14] LABS: ALKALINE PHOSPHATASE 58 U/L (40-136)
[2020-03-20 06:15] LABS: CREATININE SERUM 0.93 MG/DL (0.60-1.30); GFR ESTIMATED > 60
[2020-03-20 06:16] LABS: BUN/CREATININE RATIO 16
[2020-03-20 06:17] LABS: ALANINE AMINOTRANSFERASE 95 U/L (0-55)
[2020-03-20 08:00] VITALS: BP 103/60
--- NOTE | 2020-03-20 08:35 | Progress Note ---
Subjective Subjective Date Seen by Provider: Mar 20, 2020 Time Seen by Provider: 08:30 PT REPORTS THAT HE IS FEELING QUITE FATIGUED, BUT HIS SHORTNESS OF BREATH HAS IMPROVED. HE DENIES ABDOMINAL PAIN, NAUSEA, CONSTIPATION. HE HAD SOME SHORTNESS OF BREATH YESTERDAY EVENING. Review of Systems General: No Chills; Fatigue Pulmonary: No Dyspnea; Cough Cardiovascular: No: Chest Pain Gastrointestinal: No: Nausea, Abdominal Pain Neurological: Weakness; No: Confusion All Other Systems Reviewed All Other Systems Reviewed: Yes Objective Exam Vital Signs Vital Signs - First Documented 03/19/20 03/19/20 08:57 09:00 Temp 36.8 Pulse 91 Resp 16 B/P (MAP) 138/75 (96) Pulse Ox 99 O2 Delivery Nasal Cannula O2 Flow Rate 4.00 Capillary Refill : Less Than 3 Seconds General Appearance: WD/WN, Mild Distress (ILL APPEARING) Eyes: Bilateral Eye Normal Inspection, Bilateral Eye PERRL, Bilateral Eye EOMI HEENT: PERRL/EOMI, Pharynx Normal Neck: Full Range of Motion Respiratory: Chest Non Tender, No Accessory Muscle Use, No Respiratory Distress, Decreased Breath Sounds (IN BASES) Cardiovascular: Regular Rate, Rhythm, No Edema, Normal Peripheral Pulses Gastrointestinal: Normal Bowel Sounds, No Organomegaly, No Pulsatile Mass, Non Tender, Soft Rectal: Deferred Extremity: Normal Capillary Refill, Normal Inspection, Normal Range of Motion, Non Tender, No Calf Tenderness, No Pedal Edema Neurologic/Psychiatric: Alert, Oriented x3, No Motor/Sensory Deficits, Normal Mood/Affect, lead applications developer II-XII Norm as Tested Skin: Normal Color, Warm/Dry Lymphatic: No Adenopathy Results Lab Laboratory Tests 03/19/20 09:05: White Blood Count 3.5L, Red Blood Count 5.08, Hemoglobin 15.0, Hematocrit 45, Mean Corpuscular Volume 89, Mean Corpuscular Hemoglobin 30, Mean Corpuscular Hemoglobin Concent 33, Red Cell Distribution Width 14.6H, Platelet Count 141, Mean Platelet Volume 9.8, Neutrophils (%) (Auto) 93H, Lymphocytes (%) (Auto) 5L, Monocytes (%) (Auto) 1, Eosinophils (%) (Auto) 2, Basophils (%) (Auto) 0, Neutrophils # (Auto) 3.2, Lymphocytes # (Auto) 0.2L, Monocytes # (Auto) 0.0, Eosinophils # (Auto) 0.1, Basophils # (Auto) 0.0, Neutrophils % (Manual) 72, Lymphocytes % (Manual) 8, Monocytes % (Manual) 0, Eosinophils % (Manual) 2, Basophils % (Manual) 0, Band Neutrophils 18, Blood Morphology Comment NORMAL, Erythrocyte Sedimentation Rate 5, Sodium Level 144, Potassium Level 4.2, Chloride Level 110H, Carbon Dioxide Level 22, Anion Gap 12, Blood Urea Nitrogen 16, Creatinine 1.09, Estimat Glomerular Filtration Rate > 60, BUN/Creatinine Ratio 15, Glucose Level 161H, Lactic Acid Level 2.25*H, Calcium Level 9.3, Corrected Calcium 9.2, Total Bilirubin 0.9, Aspartate Amino Transf (AST/SGOT) 35H, Alanine Aminotransferase (ALT/SGPT) 49, Alkaline Phosphatase 83, C-Reactive Protein High Sensitivity 1.16H, Total Protein 6.5, Albumin 4.1, Procalcitonin 0.07, Coronavirus (COVID-19)(PCR) Negative 03/19/20 09:08: Blood Gas Puncture Site RT RAD, Blood Gas Patient Temperature 98.8, Arterial Blood pH 7.37, Arterial Blood Partial Pressure CO2 36, Arterial Blood Partial Pressure O2 176H, Arterial Blood HCO3 20L, Arterial Blood Total CO2 21.4, Arterial Blood Oxygen Saturation 100, Arterial Blood Base Excess -4.1L, Justin Test YES-POS, Blood Gas Ventilator Setting NO, Blood Gas Inspired Oxygen 3 L 03/19/20 09:25: Urine Color YELLOW, Urine Clarity CLEAR, Urine pH 5.5, Urine Specific [place] >=1.030, Urine Protein 1+H, Urine Glucose (UA) NEGATIVE, Urine Ketones NEGATIVE, Urine Nitrite NEGATIVE, Urine Bilirubin NEGATIVE, Urine Urobilinogen 0.2, Urine Leukocyte Esterase 2+H, Urine RBC (Auto) 3+H, Urine RBC TNTCH, Urine WBC TNTCH, Urine Squamous Epithelial Cells RARE, Urine Crystals NONE, Urine Bacteria FEWH, Urine Casts NONE, Urine Mucus NEGATIVE, Urine Culture Indicated CULTURE PENDING 03/19/20 09:55: Prothrombin Time 14.3, INR Comment 1.1, Activated Partial Thromboplast Time 25, D-Dimer 0.53H 03/19/20 11:00: Lactic Acid Level 1.60 03/20/20 05:48: White Blood Count 2.5L, Red Blood Count 3.78L, Hemoglobin 11.2#L, Hematocrit 34L , Mean Corpuscular Volume 91, Mean Corpuscular Hemoglobin 30, Mean Corpuscular Hemoglobin Concent 33, Red Cell Distribution Width 14.7H, Platelet Count 86L, Mean Platelet Volume 9.7, Neutrophils (%) (Auto) 84H, Lymphocytes (%) (Auto) 9L, Monocytes (%) (Auto) 7, Eosinophils (%) (Auto) 0, Basophils (%) (Auto) 0, Neutrophils # (Auto) 2.1, Lymphocytes # (Auto) 0.2L, Monocytes # (Auto) 0.2, Eosinophils # (Auto) 0.0, Basophils # (Auto) 0.0, Sodium Level 139, Potassium Level 3.9, Chloride Level 115H, Carbon Dioxide Level 17L, Anion Gap 7, Blood Urea Nitrogen 15, Creatinine 0.93, Estimat Glomerular Filtration Rate > 60, BUN/Creatinine Ratio 16, Glucose Level 124H, Calcium Level 7.3L, Corrected Calcium 8.0L, Total Bilirubin 0.9, Aspartate Amino Transf (AST/SGOT) 80H, Alanine Aminotransferase (ALT/SGPT) 95H, Alkaline Phosphatase 58, Total Protein 4.9L, Albumin 3.1L Assessment/Plan Assessment/Plan Admission Dx SEPSIS URINARY TRACT INFECTION RECENT KIDNEY STONE PASSAGE BPH FEVER COVID-19 PUI LEUKOPENIA LACTIC ACID ELEVATION NAUSEA SEPSIS WITH URINARY TRACT INFECTION WITH LACTIC ACID ELEVATION - LACTIC ACID LEVEL ELEVATED ON ADMISSION - REPEAT WAS NORMAL. - CONTINUE WITH FLUIDS, IV ANTIBIOTIC OF ROCEPHIN, MONITOR LABS AND RESPONSE TO TREATMENT. RECENT KIDNEY STONE PASSAGE - SUPPORTIVE CARE AND PUSH FLUIDS IV AND ORAL. BPH - RESTARTED HOME REGIMEN OF TAMSULOSIN AND DUTASTERIDE FEVER AND COVID-19 PUI - TYLENOL PRN - WILL START PRN IBUPROFEN - COVID TESTING NEGATIVE LEUKOPENIA - REPEAT LABS IN MORNING. NAUSEA - - PROMETHAZINE AND ZOFRAN PRN DVT PROPHYLAXIS WITH LOVENOX AND SCD'S GI PROPHYLAXIS WITH PEPCID. Admission Dx SEPSIS URINARY TRACT INFECTION RECENT KIDNEY STONE PASSAGE BPH FEVER COVID-19 PUI LEUKOPENIA LACTIC ACID ELEVATION NAUSEA Clinical Quality Measures Admission Status Admission Dx SEPSIS URINARY TRACT INFECTION RECENT KIDNEY STONE PASSAGE BPH FEVER COVID-19 PUI LEUKOPENIA LACTIC ACID ELEVATION NAUSEA DVT/VTE Risk/Contraindication: Risk Factor Score Per Nursin RFS Level Per Nursing on Admit: 3=High CHAD MARTÍNEZ MD Mar 20, 2020 08:35
[2020-03-20] MEDS: cefTRIAXone 1,000 MG/SWFI 10 ML IV PUSH IV SCH ×2 (08:59)
[2020-03-20] MEDS ORDERED: DUTASTERIDE 0.5 MG PO SCH (09:00)
[2020-03-20] MEDS: FAMOTIDINE 20 MG (PEPCID) TABLET PO SCH ×2 (09:00→20:38)
[2020-03-20] MEDS: ENOXAPARIN 40 MG/0.4 ML (LOVENOX) SYR SC SCH (09:01)
[2020-03-20] MEDS: FINASTERIDE (PROSCAR) 5 MG TAB PO SCH (09:04)
--- NOTE | 2020-03-20 09:13 | Physician Query Clarification ---
PQ-Conflicting Diagnosis Admission/Discharge Admission Date: Mar 19, 2020 at 11:31 Discharge Date: The medical record reflects the following clinical scenario: Dr. Maldonado, History/Risk Factors: Sepsis UTI Clinical Findings:WBC 3.5, Pulse 91, BP 138/75 dropping to 117/56. Lactic acid 2.25. Treatment:IV Azithromycin 500mg, IV Rocephin. Question: Do you agree with the impression of Severe sepsis per Dr. Gomez on ED record under focus exam? Please document a response in Progress Note or Discharge Summary. 1. Yes 2. No 3. Other, with explanation of clinical findings 4. Clinically undetermined, no explanation for clinical findings. PHYSICIAN RESPONSE Do you agree w/Consulting Dx?: Yes Please remember a lack of response to the above will prompt a phone page by CDI/Coding staff. In responding to this query, please exercise your independent professional judgment. The purpose of this communication is to more accurately reflect the complexity of your patients condition. The fact that a question is asked does not imply that any particular answer is desired or expected. Thank you for your timely response to this clarification. Requestors name: Fabienne Bee [facility] Phone # ext [phone] or [phone] THIS PHYSICIAN QUERY FORM IS A PERMANENT PART OF THE MEDICAL RECORD FABIENNE BEE Mar 20, 2020 09:13 CHAD MALDONADO MD Mar 23, 2020 12:34
--- NOTE | 2020-03-20 09:26 | Physician Query Clarification ---
PQ-Further Specificity Admission/Discharge Admission Date: Mar 19, 2020 at 11:31 Discharge Date: The medical record reflects the following clinical scenario: Dr. Maldonado, History/Risk Factors: Sepsis UTI Recent kidney stone passage Clinical Findings: Lactic acid 2.25 on admission Treatment:IV fluids and oxygen per nasal cannula 4L. Question: Can you further specify elevated lactic acid per the clinical i ndicators above? Please document a response in the Progress Notes or Discharge Summary. 1. Lactic acidosis 2. Elevated lactic acid. 3. Other, with explanation of the clinical findings. 4. Clinically undetermined, no explanation for the clinical findings. PHYSICIAN RESPONSE Can you specify per above: 1 Please remember a lack of response to the above will prompt a phone page by CDI/Coding staff. In responding to this query, please exercise your independent professional judgment. The purpose of this communication is to more accurately reflect the complexity of your patients condition. The fact that a question is asked does not imply that any particular answer is desired or expected. Thank you for your timely response to this clarification. Requestors name: Fabienne Bee [facility] Phone # ext [phone] or [phone] THIS PHYSICIAN QUERY FORM IS A PERMANENT PART OF THE MEDICAL RECORD FABIENNE BEE Mar 20, 2020 09:26 CHAD MALDONADO MD Mar 23, 2020 12:35
--- NOTE | 2020-03-20 10:00 | NUR ---
TOOK OVER CARE OF THIS PT AT THIS TIME. RECEIVED REPORT FROM FEDERICO GONZÁLES
[2020-03-20 12:30] VITALS: BP 114/64
--- NOTE | 2020-03-20 14:35 | NUR ---
Pastoral care visit.
[2020-03-20 16:53] VITALS: BP 104/68
[2020-03-20] MEDS: TAMSULOSIN 0.4 MG (FLOMAX) CAP PO SCH (18:11)
[2020-03-20] MEDS: ACETAMINOPHEN 325 MG TABLET PO PRN (18:12)
[2020-03-20] MEDS ORDERED: FUROSEMIDE 40 MG/4 ML INJ (LASIX) ONE (20:12)
[2020-03-20] MEDS ORDERED: FUROSEMIDE 40 MG/4 ML INJ (LASIX) IVP NR (20:15)
[2020-03-20 20:17] VITALS: BP 133/74
[2020-03-20] MEDS ORDERED: RT-ALBUTEROL SULF 2.5 MG/3 ML PRE-MIX VIAL ONE (20:21)
[2020-03-20] MEDS ORDERED: TAMSULOSIN 0.4 MG (FLOMAX) CAP PO SCH (21:00)
--- NOTE | 2020-03-20 21:00 | NUR ---
Physical assessment done and noted that pt has labored breathing and wheezing. Notified Dr. Maldonado, received orders of 40mg IV Lasix; reduced IV flow rate to 50cc/hr; and request RT service. Will follow orders.
[2020-03-21] VITALS (9 sets, daily range): BP systolic 101–142; BP diastolic 58–79
[2020-03-21] MEDS: FAMOTIDINE 20 MG (PEPCID) TABLET PO SCH ×2 (08:00→21:04)
[2020-03-21] MEDS: cefTRIAXone 1,000 MG/SWFI 10 ML IV PUSH IV SCH ×2 (08:00)
[2020-03-21] MEDS: FINASTERIDE (PROSCAR) 5 MG TAB PO SCH (08:00)
--- NOTE | 2020-03-21 08:05 | Progress Note ---
Subjective Subjective Date Seen by Provider: Mar 21, 2020 Time Seen by Provider: 07:20 Pt reports having shortness of breath last night. He was given Lasix which he states made him urinate frequently, but did improve his breathing. He reports still having some lower chest tightness with deep breaths. He says it feels like the muscles around his ribs are sore and makes it hard to take a deep breath. Review of Systems General: No Chills HEENT: Head Aches; No Sore Throat Pulmonary: Dyspnea, Cough Cardiovascular: No: Chest Pain, Palpitations Gastrointestinal: No: Nausea, Vomiting, Abdominal Pain, Diarrhea, Constipation Genitourinary: No Dysuria; Frequency (Due to medication) Musculoskeletal: leg pain (chronic hip) Neurological: No: Weakness, Numbness All Other Systems Reviewed All Other Systems Reviewed: Yes Objective Exam Vital Signs Vital Signs - First Documented 03/19/20 03/19/20 08:57 09:00 Temp 36.8 Pulse 91 Resp 16 B/P (MAP) 138/75 (96) Pulse Ox 99 O2 Delivery Nasal Cannula O2 Flow Rate 4.00 Capillary Refill : Less Than 3 Seconds General Appearance: WD/WN, Mild Distress (ILL APPEARING) Eyes: Bilateral Eye Normal Inspection, Bilateral Eye PERRL, Bilateral Eye EOMI HEENT: PERRL/EOMI, Pharynx Normal Neck: Full Range of Motion Respiratory: Chest Non Tender, No Accessory Muscle Use, No Respiratory Distress, Decreased Breath Sounds (IN BASES) Cardiovascular: Regular Rate, Rhythm, No Edema, Normal Peripheral Pulses Gastrointestinal: Normal Bowel Sounds, No Organomegaly, No Pulsatile Mass, Non Tender, Soft Rectal: Deferred Extremity: Normal Capillary Refill, Normal Inspection, Normal Range of Motion, Non Tender, No Calf Tenderness, No Pedal Edema Neurologic/Psychiatric: Alert, Oriented x3, No Motor/Sensory Deficits, Normal 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, 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 as Tested Skin: Normal Color, Warm/Dry Lymphatic: No Adenopathy Results Lab Microbiology 03/19/20 Urine Culture - Final, Complete 3 or more isolates 03/19/20 Blood Culture - Preliminary, Resulted No growth Assessment/Plan Assessment/Plan Assessment and Plan STAPHYLOCOCCAL BLOOD CULTURE -CONTINUE CEFTRIAXONE -IV FLUIDS -MONITOR ANEMIA -MONITOR HGB/HCT LEUKOPENIA -MONITOR DYSPNEA -CRACKLES HEARD ON AUSCULTATION INDICATING POSSIBLE FLUID -CONSIDER ADDITIONAL LASIX -MONITOR FLUID STATUS, CHECK FOR OVERLOAD, -INITIATE O2 NASAL CANNULA PRN Clinical Quality Measures DVT/VTE Risk/Contraindication: Risk Factor Score Per Nursin RFS Level Per Nursing on Admit: 3=High Supervisory-Addendum Brief Verification & Attestation Participated in pt care: history, MDM, physical Personally performed: exam, history, MDM Care discussed with: Medical Student Procedures: n/a Results interpretation: Verified all documentation SEPSIS URINARY TRACT INFECTION RECENT KIDNEY STONE PASSAGE BPH FEVER COVID-19 PUI LEUKOPENIA LACTIC ACID ELEVATION NAUSEA DYSPNEA SEPSIS WITH URINARY TRACT INFECTION WITH LACTIC ACID ELEVATION - LACTIC ACID LEVEL ELEVATED ON ADMISSION - REPEAT WAS NORMAL. - CONTINUE WITH FLUIDS, IV ANTIBIOTIC OF ROCEPHIN, MONITOR LABS AND RESPONSE TO TREATMENT. RECENT KIDNEY STONE PASSAGE - SUPPORTIVE CARE AND PUSH FLUIDS IV AND ORAL. BPH - RESTARTED HOME REGIMEN OF TAMSULOSIN AND DUTASTERIDE FEVER AND COVID-19 TESTING NEGATIVE - TYLENOL PRN - WILL START PRN IBUPROFEN LEUKOPENIA - CONTINUE TO REPEAT LABS IN MORNING. NAUSEA - - PROMETHAZINE AND ZOFRAN PRN DYSPNEA - PRN LASIX DVT PROPHYLAXIS WITH LOVENOX AND SCD'S GI PROPHYLAXIS WITH PEPCID. OSWALDO BURGOS MED STUDEN Mar 21, 2020 08:05 CHAD MARTÍNEZ MD Mar 23, 2020 12:42
[2020-03-21] MEDS: ACETAMINOPHEN 325 MG TABLET PO PRN (08:13)
[2020-03-21 08:49] LABS: HEMOGLOBIN 11.9 G/DL (13.3-17.7); MEAN PLATELET VOLUME 9.9 FL (7.4-10.4); RED CELL DISTRIBUTION WIDTH 14.7 % (10.0-14.5); WHITE BLOOD COUNT 2.5 10^3/uL (4.3-11.0)
[2020-03-21] MEDS ORDERED: FUROSEMIDE 40 MG/4 ML INJ (LASIX) IVP ONE (09:00)
[2020-03-21 09:15] LABS: ALANINE AMINOTRANSFERASE 98 U/L (0-55); ALBUMIN 3.4 GM/DL (3.2-4.5); ALKALINE PHOSPHATASE 71 U/L (40-136); BILIRUBIN,TOTAL 0.4 MG/DL (0.1-1.0); BUN/CREATININE RATIO 12; CALCIUM 7.8 MG/DL (8.5-10.1); CARBON DIOXIDE 19 MMOL/L (21-32); CHLORIDE 111 MMOL/L (98-107); CREATININE SERUM 1.02 MG/DL (0.60-1.30); GFR ESTIMATED > 60; GLUCOSE 229 MG/DL (70-105); POTASSIUM 3.8 MMOL/L (3.6-5.0); SODIUM 140 MMOL/L (135-145); TOTAL PROTEIN 5.7 GM/DL (6.4-8.2)
[2020-03-21] MEDS: ENOXAPARIN 40 MG/0.4 ML (LOVENOX) SYR SC SCH (11:40)
[2020-03-21] MEDS ORDERED: RT-ALBUTEROL SULF 2.5 MG/3 ML PRE-MIX VIAL INH PRN (13:00)
--- NOTE | 2020-03-21 14:02 | Diagnostic Imaging Report ---
INDICATION: Dyspnea. TIME OF EXAM: 02:01 p.m. Correlation is made with prior chest from 03/19/2020. FINDINGS: Heart size is normal. Lungs are clear. No infiltrates are seen. There is no effusion or pneumothorax. IMPRESSION: No acute cardiopulmonary process is detected. Dictated by: Dictated on workstation # [id number]
[2020-03-21] MEDS: RT-ALBUTEROL SULF 2.5 MG/3 ML PRE-MIX VIAL INH SCH ×2 (14:31→18:34)
[2020-03-21] MEDS: TAMSULOSIN 0.4 MG (FLOMAX) CAP PO SCH (17:13)
--- NOTE | 2020-03-21 17:18 | NUR ---
CALLED DR. MARTÍNEZ TO INFORM HER THAT THIS PT HAS DEVELOPED A PRODUCTIVE COUGH. ORDER GIVEN FOR MEDICATION
[2020-03-21] MEDS ORDERED: PROMETHAZINE/ CODEINE SYRUP 5 ML UDC PO PRN (17:30)
[2020-03-21] MEDS: NS IV 1000 ML 1,000 ML IV SCH (18:21)
[2020-03-22 01:40] VITALS: BP 150/81
--- NOTE | 2020-03-22 01:40 | NUR ---
PT INFORMED THIS RN HE GOT UP TO GO TO BATHROOM AND SLIPPED. HE STATES HE CAUGHT HIMSELF ON THE TOILET AND SLIDE DOWN THE TRASH CAN. HE STATES HE DID NOT HIT HIS HEAD. UPON ASSESSMENT PT IS ALERT AND ORIENTED. NO VISUAL MARKINGS NOTED. PT IS NOT IN DISTRESS. PT NOW PLACED WITH 4 SIDE RAILS AND BED ALARM ON. DR. MARTÍNEZ CALLED AND INFORMED OF PT FALL. NO NEW ORDERS.
[2020-03-22] MEDS: NS IV 1000 ML 1,000 ML IV SCH (04:21)
[2020-03-22 04:30] VITALS: BP 143/73
[2020-03-22 06:12] LABS: HEMOGLOBIN 11.8 G/DL (13.3-17.7); MEAN PLATELET VOLUME 9.6 FL (7.4-10.4); RED CELL DISTRIBUTION WIDTH 14.4 % (10.0-14.5); WHITE BLOOD COUNT 2.8 10^3/uL (4.3-11.0)
[2020-03-22 06:38] LABS: ALANINE AMINOTRANSFERASE 77 U/L (0-55); ALBUMIN 3.3 GM/DL (3.2-4.5); ALKALINE PHOSPHATASE 73 U/L (40-136); BILIRUBIN,TOTAL 0.4 MG/DL (0.1-1.0); BUN/CREATININE RATIO 12; CARBON DIOXIDE 22 MMOL/L (21-32); CHLORIDE 111 MMOL/L (98-107); CREATININE SERUM 0.86 MG/DL (0.60-1.30); GFR ESTIMATED > 60; GLUCOSE 122 MG/DL (70-105); POTASSIUM 3.6 MMOL/L (3.6-5.0); SODIUM 142 MMOL/L (135-145); TOTAL PROTEIN 5.4 GM/DL (6.4-8.2)
[2020-03-22] MEDS: RT-ALBUTEROL SULF 2.5 MG/3 ML PRE-MIX VIAL INH SCH ×3 (07:22→15:25)
[2020-03-22 08:00] VITALS: BP 146/67
--- NOTE | 2020-03-22 08:07 | Progress Note ---
Subjective Subjective Date Seen by Provider: Mar 22, 2020 Time Seen by Provider: 07:10 Pt reports having some eye pain that feels like something is scratching his eye. He reports a history of dry eyes for which he uses eye lubricating drops at home. He reports not having a bowel movement since Thursday, but does report having gas still. He states he had not eaten much since Thursday until yesterday. He denies any nausea or vomiting. He also reports increasing production of sputum with his coughing. He states he can also feel some of the fluid in his lungs with deep breaths. He states he also has had increased nasal congestion which he has had at home as well. Review of Systems General: No Chills HEENT: Head Aches; No Sore Throat Pulmonary: Dyspnea, Cough Cardiovascular: No: Chest Pain, Palpitations Gastrointestinal: No: Nausea, Vomiting, Abdominal Pain, Diarrhea, Constipation Genitourinary: No Dysuria; Frequency (Due to medication) Musculoskeletal: leg pain (chronic hip) Neurological: No: Weakness, Numbness All Other Systems Reviewed All Other Systems Reviewed: Yes Objective Exam Vital Signs Vital Signs - First Documented 03/19/20 03/19/20 03/21/20 08:57 09:00 12:07 Temp 36.8 Pulse 91 Resp 16 B/P (MAP) 138/75 (96) Pulse Ox 99 O2 Delivery Nasal Cannula O2 Flow Rate 4.00 FiO2 21 Capillary Refill : Less Than 3 SecondsLess Than 3 Seconds General Appearance: WD/WN, Mild Distress (ILL APPEARING) Eyes: Bilateral Eye Normal Inspection, Bilateral Eye PERRL, Bilateral Eye EOMI HEENT: PERRL/EOMI, Pharynx Normal Neck: Full Range of Motion Respiratory: Chest Non Tender, No Accessory Muscle Use, No Respiratory Distress, Decreased Breath Sounds (IN BASES) Cardiovascular: Regular Rate, Rhythm, No Edema, Normal Peripheral Pulses Gastrointestinal: Normal Bowel Sounds, No Organomegaly, No Pulsatile Mass, Non Tender, Soft Rectal: Deferred Extremity: Normal Capillary Refill, Normal Inspection, Normal Range of Motion, Non Tender, No Calf Tenderness, No Pedal Edema Neurologic/Psychiatric: Alert, Oriented x3, No Motor/Sensory Deficits, Normal Mood/Affect, lacer and tier II-XII Norm as Tested Skin: Normal Color, Warm/Dry Lymphatic: No Adenopathy Results Lab Laboratory Tests 03/21/20 08:41: White Blood Count 2.5L, Red Blood Count 4.03L, Hemoglobin 11.9L, Hematocrit 37L, Mean Corpuscular Volume 91, Mean Corpuscular Hemoglobin 30, Mean Corpuscular Hemoglobin Concent 32, Red Cell Distribution Width 14.7H, Platelet Count 94L, Mean Platelet Volume 9.9, Sodium Level 140, Potassium Level 3.8, Chloride Level 111H, Carbon Dioxide Level 19L, Anion Gap 10, Blood Urea Nitrogen 12, Creatinine 1.02, Estimat Glomerular Filtration Rate > 60, BUN/Creatinine Ratio 12, Glucose Level 229H, Calcium Level 7.8L, Corrected Calcium 8.3L, Total Bilirubin 0.4, Aspartate Amino Transf (AST/SGOT) 57H, Alanine Aminotransferase (ALT/SGPT) 98H, Alkaline Phosphatase 71, Total Protein 5.7L, Albumin 3.4 03/22/20 06:00: White Blood Count 2.8L, Red Blood Count 3.98L, Hemoglobin 11.8L, Hematocrit 36L, Mean Corpuscular Volume 91, Mean Corpuscular Hemoglobin 30, Mean Corpuscular Hemoglobin Concent 33, Red Cell Distribution Width 14.4, Platelet Count 100L, Mean Platelet Volume 9.6, Sodium Level 142, Potassium Level 3.6, Chloride Level 111H, Carbon Dioxide Level 22, Anion Gap 9, Blood Urea Nitrogen 10, Creatinine 0.86, Estimat Glomerular Filtration Rate > 60, BUN/Creatinine Ratio 12, Glucose Level 122H, Calcium Level 8.0L, Corrected Calcium 8.6, Total Bilirubin 0.4, Aspartate Amino Transf (AST/SGOT) 37H, Alanine Aminotransferase (ALT/SGPT) 77H, Alkaline Phosphatase 73, Total Protein 5.4L, Albumin 3.3 Microbiology 03/19/20 Urine Culture - Final, Complete 3 or more isolates 03/19/20 Blood Culture - Preliminary, Resulted No growth Assessment/Plan Assessment/Plan Assessment and Plan STAPHYLOCOCCAL BLOOD CULTURE -CONTINUE CEFTRIAXONE -IV FLUIDS -MONITOR ANEMIA -MONITOR HGB/HCT LEUKOPENIA -MONITOR DYSPNEA -CRACKLES HEARD ON AUSCULTATION INDICATING POSSIBLE FLUID -CONSIDER ADDITIONAL LASIX -MONITOR FLUID STATUS, CHECK FOR OVERLOAD, -INITIATE O2 NASAL CANNULA PRN Clinical Quality Measures DVT/VTE Risk/Contraindication: Risk Factor Score Per Nursin RFS Level Per Nursing on Admit: 3=OSWALDO Hahn 16, 2020 08:07
[2020-03-22] MEDS: FINASTERIDE (PROSCAR) 5 MG TAB PO SCH (09:47)
[2020-03-22] MEDS: cefTRIAXone 1,000 MG/SWFI 10 ML IV PUSH IV SCH ×2 (09:47)
[2020-03-22] MEDS: FAMOTIDINE 20 MG (PEPCID) TABLET PO SCH ×2 (09:47→20:10)
[2020-03-22] MEDS: ENOXAPARIN 40 MG/0.4 ML (LOVENOX) SYR SC SCH (11:41)
[2020-03-22 16:00] VITALS: BP 136/78
[2020-03-22] MEDS ORDERED: ARTIFICAL TEARS 0.4 ML UNIT DOSE (REFRESH PLUS) OD PRN (16:00)
[2020-03-22] MEDS ORDERED: polyethylene glycoL POWDER 17 GM (MIRALAX) PACK PO NR (16:00)
[2020-03-22] MEDS ORDERED: FUROSEMIDE 40 MG/4 ML INJ (LASIX) IVP NR (16:45)
[2020-03-22] MEDS: TAMSULOSIN 0.4 MG (FLOMAX) CAP PO SCH (17:53)
[2020-03-22 23:55] VITALS: BP 133/69
[2020-03-23 05:23] LABS: HEMOGLOBIN 12.3 G/DL (13.3-17.7); MEAN PLATELET VOLUME 9.6 FL (7.4-10.4); RED CELL DISTRIBUTION WIDTH 14.4 % (10.0-14.5); WHITE BLOOD COUNT 3.3 10^3/uL (4.3-11.0)
[2020-03-23 05:32] LABS: ALBUMIN 3.3 GM/DL (3.2-4.5); CHLORIDE 110 MMOL/L (98-107); POTASSIUM 3.7 MMOL/L (3.6-5.0); SODIUM 143 MMOL/L (135-145)
[2020-03-23 05:34] LABS: CALCIUM 8.4 MG/DL (8.5-10.1)
[2020-03-23 05:35] LABS: GLUCOSE 130 MG/DL (70-105); TOTAL PROTEIN 5.5 GM/DL (6.4-8.2)
[2020-03-23 05:36] LABS: CARBON DIOXIDE 23 MMOL/L (21-32)
[2020-03-23 05:37] LABS: BILIRUBIN,TOTAL 0.4 MG/DL (0.1-1.0)
[2020-03-23 05:38] LABS: ALKALINE PHOSPHATASE 80 U/L (40-136); CREATININE SERUM 1.08 MG/DL (0.60-1.30); GFR ESTIMATED > 60
[2020-03-23 05:40] LABS: BUN/CREATININE RATIO 11
[2020-03-23 05:41] LABS: ALANINE AMINOTRANSFERASE 65 U/L (0-55)
[2020-03-23 07:57] VITALS: BP 137/84
[2020-03-23] MEDS: FAMOTIDINE 20 MG (PEPCID) TABLET PO SCH (08:36)
[2020-03-23] MEDS: FINASTERIDE (PROSCAR) 5 MG TAB PO SCH (08:36)
[2020-03-23] MEDS: cefTRIAXone 1,000 MG/SWFI 10 ML IV PUSH IV SCH ×2 (08:37)
[2020-03-23] MEDS ORDERED: ALBU18HF2 INH (09:29)
[2020-03-23] MEDS ORDERED: CEFD300C3 PO (09:29)
--- NOTE | 2020-03-23 09:37 | Discharge Inst-Simple/Standard ---
Discharge Inst-Standard Reconcile Patient Problems Problems Reviewed?: Yes Discharge Medications New, Converted or Re-Newed RX: Transmitted to Pharmacy Patient Instructions/Follow Up Plan of Care/Instructions/FU: 1 WK FOLLOW UP [facility] Activity as Tolerated: Yes Discharge Diet: Regular Diet Return to The Hospital For: ANY CONCERN FOR WORSENING SHORTNESS OF BREATH, CHEST PAIN, NAUSEA, OR LIFE THREATENING ILLNESS OR INJURY Medication List: Active Scripts Active Ventolin Hfa (Albuterol Sulfate) 18 Gm Hfa.aer.ad 18 Gm INH QID Cefdinir 300 Mg Capsule 300 Mg PO BID Reported Flomax (Tamsulosin HCl) 0.4 Mg Cap 0.4 Mg PO HS Avodart (Dutasteride) 0.5 Mg Cap 0.5 Mg PO DAILY Lab results: Laboratory Tests Test 03/23/20 04:50 Range/Units White Blood Count 3.3 L 4.3-11.0 10^3/uL Red Blood Count 4.13 L 4.35-5.85 10^6/uL Hemoglobin 12.3 L 13.3-17.7 G/DL Hematocrit 37 L 40-54 % Mean Corpuscular Volume 90 80-99 FL Mean Corpuscular Hemoglobin 30 25-34 PG Mean Corpuscular Hemoglobin Concent 33 32-36 G/DL Red Cell Distribution Width 14.4 10.0-14.5 % Platelet Count 133 130-400 10^3/uL Mean Platelet Volume 9.6 7.4-10.4 FL Sodium Level 143 135-145 MMOL/L Potassium Level 3.7 3.6-5.0 MMOL/L Chloride Level 110 H 98-107 MMOL/L Carbon Dioxide Level 23 21-32 MMOL/L Anion Gap 10 5-14 MMOL/L Blood Urea Nitrogen 12 7-18 MG/DL Creatinine 1.08 0.60-1.30 MG/DL Estimat Glomerular Filtration Rate > 60 BUN/Creatinine Ratio 11 Glucose Level 130 H 70-105 MG/DL Calcium Level 8.4 L 8.5-10.1 MG/DL Corrected Calcium 9.0 8.5-10.1 MG/DL Total Bilirubin 0.4 0.1-1.0 MG/DL Aspartate Amino Transf (AST/SGOT) 35 H 5-34 U/L Alanine Aminotransferase (ALT/SGPT) 65 H 0-55 U/L Alkaline Phosphatase 80 40-136 U/L Total Protein 5.5 L 6.4-8.2 GM/DL Albumin 3.3 3.2-4.5 GM/DL My orders: Orders - CHAD MARTÍNEZ MD Carboxymethylcell Ophth Soln (Refresh Pl (03/22/20 16:00) Polyethylene Glycol Powder Pkt (Miralax (03/22/20 16:00) Furosemide Injection (Lasix Injection) (03/22/20 16:45) Attending Discharge Inpt/Inobs (03/23/20 09:26) CHAD MARTÍNEZ MD Mar 23, 2020 09:37
--- NOTE | 2020-03-23 09:41 | Discharge Summary ---
Diagnosis/Chief Complaint Date of Admission Mar 19, 2020 at 11:31 Date of Discharge Discharge Date: Mar 23, 2020 Discharge Time: 1000 Admission Diagnosis Admission Diagnosis SEPSIS URINARY TRACT INFECTION RECENT KIDNEY STONE PASSAGE BPH FEVER COVID-19 PUI LEUKOPENIA LACTIC ACID ELEVATION NAUSEA DYSPNEA Discharge Diagnosis SEPSIS URINARY TRACT INFECTION RECENT KIDNEY STONE PASSAGE BPH FEVER COVID-19 PUI LEUKOPENIA LACTIC ACID ELEVATION NAUSEA DYSPNEA Reason Hospital Visit PT IS AN 80 Y/O MALE WHO IS KNOWN TO ME FROM CLINIC. HE HAS HISTORY OF RENAL STONES AND FELT LIKE HE WAS PASSING A KIDNEY STONE IMMEDIATELY PRIOR TO HIS EVALUATION IN THE EMERGENCY DEPARTMENT. HE HAD GROSS BLOOD PER URETHRA AND HAD ELEVATION OF HIS LACTIC ACID WITH SYMPTOMS OF SEPSIS. HE WAS SWABBED FOR COVID 19 DUE TO HIS SYMPTOMS OF FEVER, CHILLS, AND WAS ADMITTED ON IV ANTIBIOTICS FOR SEPSIS FROM URINARY SYSTEM. Discharge Summary Discharge Physical Examination Allergies: Coded Allergies: No Known Drug Allergies (Unverified , 05/09/11) Vitals & I&Os Vital Signs Date Time Temp Pulse Resp B/P (MAP) Pulse Ox O2 Delivery O2 Flow Rate FiO2 03/23/20 10:30 36.3 58 18 137/84 96 Room Air 03/21/20 12:07 21 03/19/20 17:51 4.00 4.00 Hospital Course Was the Problem List Reviewed?: Yes SEPSIS URINARY TRACT INFECTION RECENT KIDNEY STONE PASSAGE BPH FEVER COVID-19 PUI LEUKOPENIA LACTIC ACID ELEVATION NAUSEA DYSPNEA SEPSIS WITH URINARY TRACT INFECTION WITH LACTIC ACID ELEVATION - LACTIC ACID LEVEL ELEVATED ON ADMISSION - REPEAT WAS NORMAL. - CONTINUED WITH FLUIDS, IV ANTIBIOTIC OF ROCEPHIN, MONITOR LABS AND RESPONSE TO TREATMENT. - RESOLVED SEPSIS - CONTINUE WITH ORAL ANTIBIOTICS OF CEFDINIR 300MG TWICE DAILY X 4 MORE DAYS. RECENT KIDNEY STONE PASSAGE - SUPPORTIVE CARE AND PUSH FLUIDS IV AND ORAL. BPH - RESTARTED HOME REGIMEN OF TAMSULOSIN AND DUTASTERIDE FEVER AND COVID-19 TESTING NEGATIVE - TYLENOL PRN - WILL START PRN IBUPROFEN LEUKOPENIA - CONTINUE TO REPEAT LABS IN MORNING. NAUSEA - - PROMETHAZINE AND ZOFRAN PRN DYSPNEA - PRN LASIX HAS RESOLVED THE DYSPNEA DVT PROPHYLAXIS WITH LOVENOX AND SCD'S GI PROPHYLAXIS WITH PEPCID. Pending Labs Discharge Condition at discharge IMPROVED Instructions to patient/family Please see electronic discharge instructions given to patient. Discharge Medications Reviewed and agree with Discharge Medication list on patient's Discharge Instruction sheet Clinical Quality Measures DVT/VTE Risk/Contraindication: Risk Factor Score Per Nursin RFS Level Per Nursing on Admit: 3=High CHAD MARTÍNEZ MD Mar 23, 2020 09:41
[2020-03-23 10:30] VITALS: BP 137/84
== END 2020-03-23 10:30 | disposition home or self-care (01) | DRG 872 ==
LOC: EDUNIT# 08:57 → ER 08:58 → 4TH 11:31
PROVIDERS: ADMIT Family Medicine; ATTEND Family Medicine
DX: A41.9 Sepsis, unspecified organism (principal); N39.0 Urinary tract infection, site not specified; K92.0 Hematemesis; E87.2 Acidosis; N40.0 Benign prostatic hyperplasia without lower urinary tract symptoms; R91.1 Solitary pulmonary nodule; R65.20 Severe sepsis without septic shock; Z20.828 Contact with and (suspected) exposure to other viral communicable diseases; Z87.442 Personal history of urinary calculi
CPT/HCPCS: 36415; 71045; 71046; 74176; 80053; 81000; 82805; 83605; 84145; 85007; 85025; 85027; 85379; 85610; 85652; 85730; 86141; 87040; 87077; 87088; 87635; 94640; 94760